=== PATIENT | female | born 1930 | race Caucasian/White ===

== ENCOUNTER 2017-03-31 03:18 | Emergency (ER) | payer MEDICARE, BC ==
[~2017-03-31] VITALS: Ht 154.9 cm; Wt 61.5 kg
[~2017-03-31 03:18] MED LIST: AMOX1TAB10 PO; BENA40TA41 PO; GLIP5TAB13 PO; HYDR25TA6 PO; IBUP-1542 PO; METO25TA7 PO; MTF1000T PO; PRAV20TA63 PO
[2017-03-31 03:23] VITALS: Ht 154.9 cm; Wt 61.5 kg
--- NOTE | 2017-03-31 04:13 | RADRPT ---
PROCEDURE: Chest. CLINICAL INDICATION: Chest pain. TECHNIQUE: Single frontal view of the chest was obtained. COMPARISON: None. FINDINGS: The cardiac silhouette is enlarged. The aortic arch is calcified. There is no focal consolidation, vascular congestion or pleural effusion. There is no pneumothorax. IMPRESSION: Cardiomegaly and aortic atherosclerosis. .Tay Shields MD, MD Date Time Electronically viewed and signed by .Tay Shields MD, MD on 03/31/2017 04:13 .T/
[2017-03-31 04:23] LABS: BASOPHIL # 0.1 10^3/ul (0.0-0.1); BASOPHILS % 0.5 % (0.0-2.0); EOSINOPHILS # 0.1 10^3/ul (0.0-0.5); EOSINOPHILS % 1.3 % (0.0-7.0); HEMATOCRIT 38.1 % (37.0-47.0); HEMOGLOBIN 12.7 g/dl (12.0-16.0); LYMPHOCYTES # 3.1 10^3/ul (0.8-2.9); LYMPHOCYTES % 32.9 % (15.0-51.0); MEAN CORPUSCULAR HEMOGLOBIN 28.7 pg (29.0-33.0); MEAN CORPUSCULAR HGB CONC 33.3 g/dl (32.0-37.0); MEAN PLATELET VOLUME 10.5 fl (7.4-10.4); MONOCYTE # 0.8 10^3/ul (0.3-0.9); MONOCYTES % 8.9 % (0.0-11.0); NEUTROPHIL # 5.2 10^3/ul (1.6-7.5); PLATELET COUNT 262 10^3/UL (140-415); RED BLOOD COUNT 4.43 10^6/ul (4.20-5.40); RED CELL DISTRIBUTION WIDTH 13.3 % (11.5-14.5); WHITE BLOOD COUNT 9.3 10^3/ul (4.8-10.8)
[2017-03-31] MEDS ORDERED: MECLIZINE 12.5 MG TAB PO ONE (04:30)
[2017-03-31 04:32] LABS: INR 0.97; PROTIME 12.9 Sec (12.2-14.2)
[2017-03-31 04:33] LABS: PARTIAL THROMBOPLASTIN TIME 36.7 Sec (25.0-35.0)
[2017-03-31 04:34] LABS: ALANINE AMINOTRANSFERASE 28 IU/L (13-69); ALBUMIN 4.7 g/dl (3.3-4.9); ALBUMIN/GLOBULIN RATIO 1.62; ALKALINE PHOSPHATASE 97 IU/L (42-121); ANION GAP 21 (8-16); ASPARTATE AMINO TRANSFERASE 25 IU/L (15-46); BILIRUBIN,INDIRECT 0.5 mg/dl (0-1.1); BILIRUBIN,TOTAL 0.5 mg/dl (0.2-1.3); BLOOD UREA NITROGEN 14 mg/dl (7-20); CALCIUM 9.9 mg/dl (8.4-10.2); CARBON DIOXIDE 25 mmol/L (21-31); CHLORIDE 96 mmol/L (97-110); CREATININE 0.69 mg/dl (0.44-1.00); GLUCOSE 126 mg/dl (70-220); POTASSIUM 3.9 mmol/L (3.5-5.1); SODIUM 138 mmol/L (135-144); TOTAL PROTEIN 7.6 g/dl (6.1-8.1)
[2017-03-31 04:47] LABS: TROPONIN-I < 0.012 ng/ml (0.00-0.12)
[2017-03-31] MEDS ORDERED: ATOR20TA38 PO (04:49)
[2017-03-31] MEDS ORDERED: MEMA28CA PO (04:49)
--- NOTE | 2017-03-31 05:06 | RADRPT ---
PROCEDURE: CT brain without contrast. CLINICAL INDICATION: Dizziness. TECHNIQUE: CT scan of the brain was performed on a multi-detector high-resolution CT scanner. Co ntiguous axial images were obtained from the skull base to the vertex without intravenous contrast. Coronal and sagittal reformatted images were also obtained. Images were reviewed on the PACS works tation. One or more of the following dose reduction techniques were used: - Automated exposure control. - Adjustment of the mA and/or kV according to patient size. - Use of iterative reconstruction technique. Exam CTD/vol = 45.01 mGy. Total exam DLP = 720.23 mGy-cm. COMPARISON: 02/10/2016. FINDINGS: The ventricles and cortical sulci are prominent consistent with mild age related volume loss. There are patchy areas of low attenuation within the periventricular white matter consistent with mild ch ronic ischemic changes secondary to small vessel disease. there is a chronic lacunar infarct within the right basal ganglia. There is no mass effect or midline shift. There is no intracranial hemor rhage or abnormal extra-axial collection. There are atherosclerotic calcifications within bilateral distal internal carotid arteries. There is a small calcification within the high paramedian left fro ntal lobe. The calvarium is intact. There is no evidence of fracture. Visualized paranasal sinuses and mastoi d air cells are clear. IMPRESSION: No acute intracranial abnormality identified. Mild age related volume loss and chronic ischemic white matter disease. Chronic lacunar infarct within the right basal ganglia. Cerebral atherosclerosis. 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 .Tay Shields MD, Date Time Electronically viewed and signed by .Tay Shields MD, on 03/31/2017 05:05 .T/
[2017-03-31] MEDS ORDERED: MECL12.574 PO (05:19)
--- NOTE | 2017-03-31 05:19 | ERD ---
ER Documentation Chief Complaint Date/Time DATE: 03/31/17 TIME: 05:17 Chief Complaint dizziness x 4 days HPI This is an 86-year-old female who presents to the emergency room for evaluation of dizziness. The patient describes her dizziness as a lightheaded sensation worse with rapid change in position. She denies any chest pain or shortness of breath or palpitations or vomiting associated with this. She came to the emergency room today for evaluation of this dizziness. ROS All systems reviewed and are negative except as per history of present illness. Medications Home Meds Reported Medications Memantine* (Namenda* XR) 28 Mg Cap.spr.24, 28 MG PO DAILY, #30 TAB 03/31/17 Atorvastatin Calcium* (Atorvastatin Calcium*) 20 Mg Tablet, 20 MG PO QHS, #30 TAB 03/31/17 Metoprolol Succinate* (Toprol XL*) 25 Mg Tab.sr.24h, 100 MG PO AFTER DINNER, # 30 TAB 02/11/16 Metformin* (Glucophage*) 1,000 Mg Tablet, 1000 MG PO BID, #60 TAB 02/11/16 Ibuprofen* (Ibuprofen*) 600 Mg Tablet, 600 MG PO DAILY 07/07/10 Benazepril Hcl* (Benazepril Hcl*) 40 Mg Tablet, 40 MG PO QHS 07/07/10 Discontinued Reported Medications Glipizide* (Glipizide*) 5 Mg Tablet, 15 MG PO BID, TAB [id number] IN THE MORNING AND 1TAB IN THE EVNENG 02/11/16 Pravastatin Sodium* (Pravastatin Sodium*) 20 Mg Tablet, 20 MG PO HS, TAB 02/11/16 Hydrochlorothiazide (Hydrochlorothiazide) 25 Mg Tablet, 25 MG PO DAILY 07/07/10 Discontinued Scripts Amox Tr/Potassium Clavulanate (Amox Tr-K Clv 875-125 Mg Tab) 1 Tab Tablet, 1 TAB PO BID for 3 Days, TAB Prov:KATERINA LUNDBERG 02/12/16 Allergies Allergies: Coded Allergies: No Known Allergy (Unverified , 03/31/17) PMhx/Soc History of Surgery: Yes Anesthesia Reaction: No Hx Neurological Disorder: No Hx Respiratory Disorders: No Hx Cardiac Disorders: Yes Hx Psychiatric Problems: No Hx Miscellaneous Medical Probl: Yes (GERD, HTN, Hypercholesterolemia, gallstones, choleliathiasis) Hx Alcohol Use: No Hx Substance Use: No Hx Tobacco Use: No Smoking Status: Never smoker Physical Exam Vitals Vital Signs Date Time Temp Pulse Resp B/P Pulse Ox O2 Delivery O2 Flow Rate FiO2 03/31/17 03:23 98.0 67 20 182/77 99 Physical Exam INITIAL VITAL SIGNS: Reviewed by me GENERAL: The patient is well developed and appropriate for usual state of health in no apparent distress HEENT: Pupils equal, round, and reactive to light. EOMI. There is no scleral icterus. NECK: C-spine is soft and supple, there is no meningismus. There is no cervical lymphadenopathy. LUNGS: Clear to auscultation bilaterally. There are no rales, wheezes or rhonchi. HEART: Regular rate and rhythm, no murmurs, clicks, rubs or gallops. ABDOMEN: Soft, non-tender, non-distended. There are bowel sounds in all four quadrants. No rebound or guarding. EXTREMITIES: There is no peripheral cyanosis or edema. No focal swelling or erythema. NEUROLOGICAL: The patient moves all four extremities with 5/5 strength. Cranial nerves II - XII are intact. Normal gait. Alert and oriented SKIN: There is no apparent rash or petechiae. HEME/LYMPHATIC: There is no evidence of excessive bruising or lymphedema. PSYCHIATRIC: The patient does not appear anxious or depressed. Result Diagram: 03/31/17 0350 03/31/17 0350 Results 24 hrs Laboratory Tests Test 03/31/17 03:50 White Blood Count 9.310^3/ul Red Blood Count 4.4310^6/ul Hemoglobin 12.7g/dl Hematocrit 38.1% Mean Corpuscular Volume 86.0fl Mean Corpuscular Hemoglobin 28.7pg Mean Corpuscular Hemoglobin Concent 33.3g/dl Red Cell Distribution Width 13.3% Platelet Count 87230^3/UL Mean Platelet Volume 10.5fl Neutrophils % 56.0% Lymphocytes % 32.9% Monocytes % 8.9% Eosinophils % 1.3% Basophils % 0.5% Nucleated Red Blood Cells % 0.0/100WBC Neutrophils # 5.210^3/ul Lymphocytes # 3.110^3/ul Monocytes # 0.810^3/ul Eosinophils # 0.110^3/ul Basophils # 0.110^3/ul Nucleated Red Blood Cells # 0.010^3/ul Prothrombin Time 12.9Sec Prothrombin Time Ratio 1.0 INR International Normalized Ratio 0.97 Activated Partial Thromboplast Time 36.7Sec Sodium Level 138mmol/L Potassium Level 3.9mmol/L Chloride Level 96mmol/L Carbon Dioxide Level 25mmol/L Anion Gap 21 Blood Urea Nitrogen 14mg/dl Creatinine 0.69mg/dl Glucose Level 126mg/dl Calcium Level 9.9mg/dl Total Bilirubin 0.5mg/dl Direct Bilirubin 0.00mg/dl Indirect Bilirubin 0.5mg/dl Aspartate Amino Transf (AST/SGOT) 25IU/L Alanine Aminotransferase (ALT/SGPT) 28IU/L Alkaline Phosphatase 97IU/L Troponin I < 0.012ng/ml Total Protein 7.6g/dl Albumin 4.7g/dl Globulin 2.90g/dl Albumin/Globulin Ratio 1.62 Current Medications Medications (Trade) Dose Ordered Sig/Adam Route PRN Reason Start Time Stop Time Status Last Admin Dose Admin Meclizine HCl (Antivert) 25 mg ONCE ONCE PO 03/31/17 04:30 03/31/17 04:31 DC Procedures/MDM EKG: Rate/Rhythm: [Normal Sinus Rhythm] QRS, ST, T-waves: [No changes consistent w/ acute ischemia] Impression: [No evidence of ischemia or arrhythmia] Chest X-ray 1V Interpreted by me: Soft Tissue: No acute abnormalities Bones: No acute abnormalities Mediastinum/Cardiac Silhouette/Lungs: [No acute abnormalities] CT brain: No acute intracranial abnormality identified. Mild age related volume loss and chronic ischemic white matter disease. Chronic lacunar infarct within the right basal ganglia. Cerebral atherosclerosis. 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 This 86-year-old female presents to the ER for evaluation of dizziness. When I evaluated her she was in no acute distress and was hemodynamically stable. The patient was ambulating in the ER without difficulty. The patient underwent cardiac workup including troponin which is negative, EKG which is nonischemic. Chest x-ray is clear. I did obtain a CT of the brain which does not show any acute intracranial abnormalities. This patient stated that her dizziness had improved with meclizine. Given her hemodynamic stability, and decreased dizziness with meclizine she will be discharged at this time with a prescription for meclizine and instructed to return to the ER if her symptoms worsen. Departure Diagnosis: Primary Impression: Dizziness Condition: Stable MECHE ROA DO Mar 31, 2017 05:19
[2017-03-31 05:48] VITALS: BP 178/71; PULSE 68; RESP 20
== END 2017-03-31 05:50 | disposition home or self-care (01) ==
LOC: E/R 03:18
DX: R42 Dizziness and giddiness (principal); I10 Essential (primary) hypertension; R07.9 Chest pain, unspecified; Z79.84 Long term (current) use of oral hypoglycemic drugs
CPT/HCPCS: 36415; 70450; 71010; 80053; 84484; 85025; 85610; 85730; 93005

== ENCOUNTER 2017-04-04 22:14 | Inpatient (IN) | payer MEDICARE, BC ==
[~2017-04-04] VITALS: Ht 147.3 cm; Wt 59.1 kg
[~2017-04-04 22:14] MED LIST changes: -AMOX1TAB10 PO; +ATOR20TA38 PO; -GLIP5TAB13 PO; -HYDR25TA6 PO; +MECL12.574 PO; +MEMA28CA PO; -PRAV20TA63 PO
[2017-04-05] VITALS (14 sets, daily range): BP systolic 92–159; BP diastolic 39–98; PULSE 56–59; RESP 19–20; Ht 147.3 cm; Wt 59.1 kg
[2017-04-05] MEDS ORDERED: PROCHLORPERAZINE 10 MG INJ IV STA (02:14)
[2017-04-05] MEDS ORDERED: SOD CHLORIDE 0.9% 1,000 ML IV STA (02:14)
[2017-04-05] MEDS ORDERED: HYD25 PO (02:19)
[2017-04-05 02:43] LABS: BASOPHILS % 0.3 % (0.0-2.0); EOSINOPHILS # 0.1 10^3/ul (0.0-0.5); EOSINOPHILS % 0.7 % (0.0-7.0); HEMATOCRIT 36.8 % (37.0-47.0); HEMOGLOBIN 12.8 g/dl (12.0-16.0); LYMPHOCYTES # 2.8 10^3/ul (0.8-2.9); LYMPHOCYTES % 28.6 % (15.0-51.0); MEAN CORPUSCULAR HEMOGLOBIN 28.6 pg (29.0-33.0); MEAN CORPUSCULAR HGB CONC 34.8 g/dl (32.0-37.0); MEAN CORPUSCULAR VOLUME 82.3 fl (82.0-101.0); MEAN PLATELET VOLUME 10.4 fl (7.4-10.4); MONOCYTES % 10.2 % (0.0-11.0); NEUTROPHIL # 5.9 10^3/ul (1.6-7.5); NEUTROPHILS % 59.9 % (39.0-77.0); PLATELET COUNT 248 10^3/UL (140-415); RED BLOOD COUNT 4.47 10^6/ul (4.20-5.40); RED CELL DISTRIBUTION WIDTH 12.8 % (11.5-14.5); WHITE BLOOD COUNT 9.9 10^3/ul (4.8-10.8)
[2017-04-05 03:59] LABS: CALCIUM 9.7 mg/dl (8.4-10.2); CREATININE 0.82 mg/dl (0.44-1.00); POTASSIUM 3.6 mmol/L (3.5-5.1)
--- NOTE | 2017-04-05 04:50 | ERA ---
ER Documentation Chief Complaint Date/Time DATE: 04/05/17 TIME: 04:38 Chief Complaint DEL TORO X3wks, Vomiting today HPI 86-year-old female with a history of hypertension and diabetes presenting with on the left side of her head with associated ear pain. She states that the symptoms come and go. She hears a noise in her ear as well but she cannot describe it. She was here recently for evaluation for this headache. She had a CT scan done which did not show any acute abnormalities. She was sent home and told to follow-up with her doctor. She will follow up with her doctor who sent her to a heavy forging machine operator where she was told she had valvular regurgitation. She has also been referred to a neurologist with whom she has an appointment on May 02. An MRI has been ordered but not scheduled yet. Currently the pain is at a 4 out of 10. She denies any associated dizziness, fever, chills, vomiting. She does have decreased appetite and associated nausea. She denies any chest pain, shortness of breath, abdominal pain. Per her daughter, she has not been eating well at all. ROS All systems reviewed and are negative except as per history of present illness. Medications Home Meds Active Scripts Meclizine Hcl* (Antivert*) 12.5 Mg Tab, 12.5 MG PO Q6H Y for DIZZINESS, #20 TAB Prov:JOHNNY ROAHEMANT CANDELARIA 03/31/17 Reported Medications Hydrochlorothiazide* (Hydrochlorothiazide*) 25 Mg Tab, 25 MG PO DAILY, #30 TAB 04/05/17 Memantine* (Namenda* XR) 28 Mg Cap.spr.24, 28 MG PO DAILY, #30 TAB 03/31/17 Atorvastatin Calcium* (Atorvastatin Calcium*) 20 Mg Tablet, 20 MG PO QHS, #30 TAB 03/31/17 Metoprolol Succinate* (Toprol XL*) 25 Mg Tab.sr.24h, 100 MG PO AFTER DINNER, # 30 TAB 02/11/16 Metformin* (Glucophage*) 1,000 Mg Tablet, 1000 MG PO BID, #60 TAB 02/11/16 Ibuprofen* (Ibuprofen*) 600 Mg Tablet, 600 MG PO DAILY 07/07/10 Benazepril Hcl* (Benazepril Hcl*) 40 Mg Tablet, 40 MG PO QHS 07/07/10 Discontinued Reported Medications Glipizide* (Glipizide*) 5 Mg Tablet, 15 MG PO BID, TAB [id number] IN THE MORNING AND 1TAB IN THE EVNENG 02/11/16 Pravastatin Sodium* (Pravastatin Sodium*) 20 Mg Tablet, 20 MG PO HS, TAB 02/11/16 Hydrochlorothiazide (Hydrochlorothiazide) 25 Mg Tablet, 25 MG PO DAILY 07/07/10 Discontinued Scripts Amox Tr/Potassium Clavulanate (Amox Tr-K Clv 875-125 Mg Tab) 1 Tab Tablet, 1 TAB PO BID for 3 Days, TAB Prov:KATERINA LUNDBERG 02/12/16 Allergies Allergies: Coded Allergies: No Known Allergy (Unverified , 03/31/17) PMhx/Soc History of Surgery: Yes Anesthesia Reaction: No Hx Neurological Disorder: No Hx Respiratory Disorders: No Hx Cardiac Disorders: Yes Hx Psychiatric Problems: Yes (Dementia) Hx Miscellaneous Medical Probl: Yes (GERD, HTN, Hypercholesterolemia, gallstones, choleliathiasis) Hx Alcohol Use: No Hx Substance Use: No Hx Tobacco Use: No Smoking Status: Never smoker FmHx Family History: No diabetes Physical Exam Vitals Vital Signs Date Time Temp Pulse Resp B/P Pulse Ox O2 Delivery O2 Flow Rate FiO2 04/05/17 02:33 54 20 169/74 98 Room Air 04/04/17 22:31 97.7 62 24 187/74 98 Physical Exam Const: Appears stated age, no apparent distress Head: Atraumatic Eyes: Normal Conjunctiva, PERRLA, EOMI, no nystagmus ENT: Normal External Ears, Nose and Mouth. Unable to completely visualize TMs bilaterally secondary to cerumen. This superior portion of the left TM visualized and appears normal Neck: Full range of motion..~ No meningismus. Resp: Clear to auscultation bilaterally Cardio: Regular rate and rhythm, no murmurs. 2+ distal pulses Abd: Soft, non tender, non distended. Normal bowel sounds Skin: No petechiae or rashes Back: No midline or flank tenderness Ext: No cyanosis, or edema Neur: Awake and alert and oriented 3, cranial nerves intact, strength and sensations intact in all 4 extremities Psych: Normal Mood and Affect Result Diagram: 04/05/17 0230 04/05/17 0230 Results 24 hrs Laboratory Tests Test 04/05/17 02:30 White Blood Count 9.910^3/ul Red Blood Count 4.4710^6/ul Hemoglobin 12.8g/dl Hematocrit 36.8% Mean Corpuscular Volume 82.3fl Mean Corpuscular Hemoglobin 28.6pg Mean Corpuscular Hemoglobin Concent 34.8g/dl Red Cell Distribution Width 12.8% Platelet Count 83901^3/UL Mean Platelet Volume 10.4fl Neutrophils % 59.9% Lymphocytes % 28.6% Monocytes % 10.2% Eosinophils % 0.7% Basophils % 0.3% Nucleated Red Blood Cells % 0.0/100WBC Neutrophils # 5.910^3/ul Lymphocytes # 2.810^3/ul Monocytes # 1.010^3/ul Eosinophils # 0.110^3/ul Basophils # 0.010^3/ul Nucleated Red Blood Cells # 0.010^3/ul Sodium Level 123mmol/L Potassium Level 3.6mmol/L Chloride Level 78mmol/L Carbon Dioxide Level 23mmol/L Anion Gap 26 Blood Urea Nitrogen 27mg/dl Creatinine 0.82mg/dl Glucose Level 90mg/dl Calcium Level 9.7mg/dl Current Medications Medications (Trade) Dose Ordered Sig/Adam Route PRN Reason Start Time Stop Time Status Last Admin Dose Admin Sodium Chloride (NS) 1,000 ml @ 1,000 mls/hr Q1H STAT IV 04/05/17 02:14 04/05/17 03:13 DC 04/05/17 02:53 Prochlorperazine (Compazine Inj) 10 mg ONCE STAT IV 04/05/17 02:14 04/05/17 02:16 DC 04/05/17 03:07 Ondansetron HCl (Zofran Inj) 4 mg ER BRIDGE PRN IV NAUSEA AND/OR VOMITING 04/05/17 05:30 04/06/17 05:29 Acetaminophen (Tylenol Tab) 650 mg ER BRIDGE PRN PO MILD PAIN/FEVER 04/05/17 05:30 04/06/17 05:29 Procedures/MDM EMERGENT LABS AND DIAGNOSTIC STUDIES: Lab Results above were reviewed and interpreted by me. CBC: no anemia or evidence of infection BMP: Hyponatremia, hypochloremia, elevated BUN UA: Pending 12-lead EKG was interpreted by Mario Hernandez MD: Sinus bradycardia with ventricular rate of 59 beats per minute Normal axis Normal intervals No acute ST or T wave changes suggestive of acute ischemia or STEMI. Imaging Chest X-ray 1V Interpreted by me: Soft Tissue: No acute abnormalities Bones: No acute abnormalities Mediastinum/Cardiac Silhouette/Lungs: No acute abnormalities Initial Nursing notes reviewed. Previous Medical Records requested via the Electronic Health Record. EMERGENCY DEPARTMENT COURSE / MEDICAL DECISION MAKING: Patient is presenting with persistent left-sided headache with nausea and decreased p.o. intake. Vitals were notable for hypertension when she first arrived, which improved without medications. Her neurologic exam is normal. She had a CT scan done recently that did not show an acute abnormality. I do not think a repeat CT scan will be helpful at this time. The patient likely needs an MRI, however this does not need to happen emergently in the ED. I have a low suspicion for acute intracranial hemorrhage, meningitis, encephalitis. Reglan IV was given for the headache and IV fluids were given with improvement. There is no evidence of otitis or mastoiditis. Labs showed evidence of significant hyponatremia, which may be secondary to decreased p.o. intake versus dehydration versus some other etiology. However the patient is not stable for discharge. She will be admitted for further workup and management of her hyponatremia. I will defer any further imaging to the inpatient team. The patient is capitated to [facility]. However the patient and her daughter refused transfer. They are aware that the insurance may not pay there hospital bill for this admission, but still choose to stay. Accepting Care Team: Current data and ongoing care discussed. Time: Time of admission Primary Provider: Mamta. Consulting: none Outstanding Data: UA Departure Diagnosis: Primary Impression: Headache Qualified Code: R51 - Intractable headache, unspecified chronicity pattern, unspecified headache type Additional Impression: Hyponatremia Condition: Serious MIKAL HERNANDEZ MD Apr 05, 2017 04:50
[2017-04-05] MEDS ORDERED: ACETAMINOPHEN 325 MG TAB PO PRN (05:30)
[2017-04-05] MEDS ORDERED: ONDANSETRON 4 MG INJ IV PRN ×2 (05:30→07:00)
[2017-04-05] MEDS ORDERED: morphine 4 MG/ML VIAL IV PRN (07:00)
[2017-04-05] MEDS ORDERED: DEXTROSE 5%-0.9% NACL 1,000 ML IV SCH (07:30)
--- NOTE | 2017-04-05 07:45 | HP ---
Date/Time of Note Date/Time of Note DATE: 04/05/17 TIME: 07:33 Assessment/Plan Assessment/Plan Assessment/Plan 1. Hyponatremia: likely hypovolumic hyponatremia given reported decreased po intake - will be placed on NS IVF. 2. Headache and dizziness: likely 2/2 above - head CT here on 03/31 neg for acute findings - pt has an appt to see a Neurologist on May 02. will consider in-house consultation as needed - Will obtain MRI of brain especially given ear pain as well 3. Hypertensive Urgency: BP better controlled - adjust BP meds as needed 4. Diabetes: insulin while in-house HPI/ROS Admit Date/Time Admit Date/Time Apr 05, 2017 at 05:22 Hx of Present Illness This is an 86-year-old female with a history of hypertension and diabetes who presented to ER c/o headache, dizziness and left ear pain. She was here at [facility] ER 4 days ago with chief complain of dizziness. At that time, CT head was neg for acute findings. Pt has an appt to see a Neurologist at end of this month. Reportedly, pt also with decreased po intake In ER, initial BP was 187/74. Labs showed of 123. Patient was admitted here in February of last year for Hyponatremia (as low as 120). Currently, no chest pain, SOB, fever/chills. . PMH/Family/Social Past Surgical History Past Surgical Hx: no surgical history Social History Smoking Status: Never smoker Exam/Review of Systems Vital Signs Vitals Vital Signs Date Time Temp Pulse Resp B/P Pulse Ox O2 Delivery O2 Flow Rate FiO2 04/05/17 07:12 98.3 59 19 152/68 98 04/05/17 06:06 Room Air Exam Constitutional: other (No distress) Head: atraumatic, normocephalic Eyes: EOMI, PERRL Respiratory: clear to auscultation, normal air movement Cardiovascular: nl pulses, regular rate and rhythm Gastrointestinal: non-tender, soft Extremities: normal pulses Labs Result Diagram: 04/05/17 0230 04/05/17 0230 Medications Medications Current Medications Ondansetron HCl (Zofran Inj) 4 mg Q6H PRN IV NAUSEA AND/OR VOMITING; Start 04/05 at 07:00 Morphine Sulfate 2 mg 2 mg Q4H PRN IV Pain; Start 04/05/17 at 07:00 Dextrose/Sodium Chloride (D5-NS) 1,000 ml @ 100 mls/hr Q10H IV ; Start 04/05/17 at 07:30 ANA LAURA ROY MD Apr 05, 2017 07:45
[2017-04-05] MEDS: INSULIN ASPART [NOVOLOG] 3 ML PEN SC SCH ×4 (07:55→20:32)
[2017-04-05] MEDS ORDERED: GLUCOSE GEL 15 GRAM TUBE BUCCAL PRN (08:00)
[2017-04-05] MEDS ORDERED: GLUCAGON 1 MG INJ IM PRN (08:00)
[2017-04-05] MEDS ORDERED: GLUCOSE GEL 15 GRAM TUBE PO PRN ×2 (08:00)
[2017-04-05] MEDS ORDERED: MECLIZINE 12.5 MG TAB PO PRN (08:00)
[2017-04-05] MEDS ORDERED: INSULIN GLARGINE [LANtus] 3 ML PEN SC SCH (08:00)
[2017-04-05] MEDS ORDERED: DEXTROSE 50% 50 ML SYRINGE IV PRN ×2 (08:00)
--- NOTE | 2017-04-05 08:02 | RADRPT ---
PROCEDURE: Chest radiograph. CLINICAL INDICATION: Hyponatremia. TECHNIQUE: Single portable frontal view. COMPARISON: Radiograph from 03/31/2017. FINDINGS: The lungs are clear. No pleural effusion or focal parenchymal opacity. The heart is mildly enlarged. Mild atherosclerotic plaque is present. No suspicious bone lesion. Hydroxyapatite deposition within the right rotator cuff interval. IMPRESSION: No acute cardiopulmonary abnormality. RPTAT: PP Arely Chowdhury Physician Date Time Electronically viewed and signed by Arely Chowdhury Physician on 04/05/2017 08:02 LG/
[2017-04-05 08:57] LABS: URIC ACID 7.1 mg/dl (3.1-7.9)
[2017-04-05] MEDS ORDERED: IBUPROFEN 600 MG TAB PO SCH (09:00)
[2017-04-05] MEDS: MEMANTINE 10 MG TAB PO SCH ×2 (09:00→20:26)
[2017-04-05] MEDS: METOPROLOL (XL) 100 MG TAB PO SCH (09:00)
[2017-04-05] MEDS ORDERED: HYDROCHLOROTHIAZIDE 25 MG TAB PO SCH (09:00)
[2017-04-05 09:29] LABS: THYROID STIMULATING HORMONE 2.15 MIU/L (0.465-4.680)
[2017-04-05 11:15] LABS: CALCIUM 8.9 mg/dl (8.4-10.2); CREATININE 0.73 mg/dl (0.44-1.00); POTASSIUM 3.3 mmol/L (3.5-5.1)
[2017-04-05] MEDS ORDERED: NITROGLYCERIN (SL) 0.4 MG TAB SL PRN (11:30)
--- NOTE | 2017-04-05 11:53 | CONS ---
DATE OF ADMISSION: 04/05/2017 DATE OF CONSULTATION: 04/05/2017 Nephrology Consultation REASON FOR CONSULTATION: Hyponatremia. REQUESTING PHYSICIAN: Roberth Oleary MD HISTORY OF PRESENT ILLNESS: This is an 86-year-old female with a past medical history of hypertension and diabetes, who presented to the emergency room with complaints of nausea, vomiting, headaches, and ear pain. The patient was recently admitted to [facility] for headache. CT scan at that time showed no acute abnormalities. The patient was told to follow up with her primary doctor. The patient was also scheduled to see an outpatient neurologist; however, her symptoms progressively worsened; as a result she came to the emergency room. Upon arrival, the patient was noted to be hyponatremic with sodium 123. The patient was given antiemetics, IV fluids, and admitted to telemetry. In terms of the patient's renal history, the patient has had previous episodes of hyponatremia. The patient does take hydrochlorothiazide in an outpatient setting and ibuprofen as well as an ALYSA inhibitor. There have been no reports of hemoptysis, hematemesis, or hematochezia. PAST MEDICAL HISTORY: History of dementia, GERD, hypertension, dyslipidemia, gallstones. PAST SURGICAL HISTORY: None. ALLERGIES: NO KNOWN DRUG ALLERGIES. FAMILY HISTORY: Noncontributory. MEDICATION: Reviewed. REVIEW OF SYSTEMS: A 14-point review of systems was conducted. Pertinent positives are in the HPI, otherwise negative. PHYSICAL EXAMINATION: VITAL SIGNS: Blood pressure is 152/68, pulse 59, temperature 98.3. HEENT: Head is normocephalic. NECK: Supple. HEART: Regular rate. LUNGS: Diminished breath sounds at the bases. ABDOMEN: Soft, nontender to palpation. No rebound or guarding. EXTREMITIES: Negative for clubbing, cyanosis. No edema. DERMATOLOGIC: No rashes. MUSCULOSKELETAL: No joint effusion. NEUROLOGIC: Limited exam due to lack of patient cooperation. LABORATORY AND DIAGNOSTIC DATA: Sodium 123, potassium 3.6, chloride 78. BUN 27, creatinine 0.82. White count 9.9, hemoglobin 12.8, hematocrit of 36.8; platelet count is . ASSESSMENT AND PLAN: This is a 86-year-old female who presents with: 1. Hyponatremia, possibly acute versus chronic. Underlying etiology is likely secondary to hydrochlorothiazide, volume depletion. The possibility of underlying syndrome of inappropriate antidiuretic hormone secretion is a consideration. Plan at this point is to check a urine sodium, urine osmolarity, serum osmolarity. We will check uric acid level, TSH level. The patient is status post IV fluids. At this point would hold IV fluids. We will monitor serum sodium levels. Would hold hydrochlorothiazide. Would expect sodium levels to slowly improve once diuretic therapy has been held and patient is able to resume oral intake. 2. Nausea, vomiting. Etiology may be secondary to hyponatremia. The patient is status post antiemetics. Will continue to monitor. 3. History of hypertension. Will continue to monitor. Continue current blood pressure regimen. 4. Diabetes. Continue Accu-Cheks and insulin sliding scale. 5. History of dementia. Thank you, Dr. Oleary, for this interesting consult. It will be a pleasure to follow patient with you throughout the hospital course. Dictated By: Morgan Eduardo DO /[email or web address]/anurag /Document#: [id number]
--- NOTE | 2017-04-05 11:59 | QN ---
Documentation Comment Reevaluated patient. Spoke to patient's daughter at bedside. 2D echocardiogram from outside hospital revealed severe mitral regurgitation. This could also explain the patient's symptoms including dizziness. Currently patient denies chest pain, palpitation, nausea, vomiting or other constitutional symptoms. Will also obtain serial cardiac markers, serial EKGs. Patient will be started on aspirin, nitroglycerin sublingual PRN. at this time MRI is pending. We are going to proceed with a cardiology consultation and patient would possibly need CT surgery evaluation in-house. We will defer this to cardiology. Case discussed with Dr. Gilliam. CECILIO GARRIDO NP Apr 05, 2017 11:59
[2017-04-05 13:18] LABS: CK-MB 0.64 ng/ml (0.0-2.4)
[2017-04-05 13:22] LABS: CREATINE KINASE 30 IU/L (23-200)
[2017-04-05 13:24] LABS: TROPONIN-I < 0.012 ng/ml (0.00-0.12)
[2017-04-05 14:21] LABS: ADD UMIC YES; UR ASCORBIC ACID NEGATIVE (NEGATIVE); UR BILIRUBIN (Dip) NEGATIVE (NEGATIVE); UR BLOOD (Dip) 2+ mg/dL (NEGATIVE); UR CLARITY CLEAR (CLEAR); UR COLOR STRAW (YELLOW); UR GLUCOSE (Dip) NEGATIVE (NEGATIVE); UR KETONES (Dip) NEGATIVE (NEGATIVE); UR LEUKOCYTE ESTERASE (Dip) NEGATIVE Leu/ul (NEGATIVE); UR NITRITE (Dip) NEGATIVE (NEGATIVE); UR SPECIFIC GRAVITY (Dip) 1.005 (1.003-1.030); UR TOTAL PROTEIN (Dip) NEGATIVE (NEGATIVE); UR UROBILINOGEN (Dip) NEGATIVE (NEGATIVE)
[2017-04-05 14:22] LABS: UR RBC 2 /HPF (0-5)
--- NOTE | 2017-04-05 14:29 | RADRPT ---
Echocardiogram Report ADDENDUM Patient Name: KOFFI SHEIKH Gender: Female Date: 1930 Study Date: 05-Apr-2017 Bond Trader: Darvin Martinez RDCS Location: [facility] Ref. Physician: CECILIO GARRIDO Quality: Good Procedures: Transthoracic echocardiogram with complete 2D, M-Mode, and doppler examination. Indications: Mitral Valve Regurgitation. 2D/M Mode Doppler Measurement Value Normal Ranges Measurement Value Normal Ranges LVIDd 2D 4.0 3.5 - 5.6 cm AV Peak Mateo 1.2 m/sec LVIDs 2D 2.6 2.1 - 4.1 cm AV Peak PG 6.2 mmHg LVPWd 2D 1.1 0.6 - 1.1 cm AI Peak PG 57.6 mmHg IVSd 2D 1.1 0.6 - 1.1 cm AI Peak Mateo 3.8 m/sec AoR Diam 2D 3.1 2.0 - 3.7 cm AI PHT 791.7 msec EDV 2D 71.6 cm3 LVOT Peak Mateo 1.0 m/sec ESV 2D 16.8 cm3 LVOT Peak PG 4.4 mmHg LA Dimen 2D 4.1 2.3 - 4.0 cm MV E Peak Mateo 1.0 m/sec MV A Peak Mateo 1.3 m/sec MV E/A 0.8 MV Decel Time 325 msec MV Decel Solano 3 MV E/A 0.8 TR Peak Mateo 2.6 m/sec TR Peak PG 26.1 mmHg RVSP 29.0 mmHg Findings Left Ventricle: Normal left ventricular systolic function. Normal left ventricular cavity size. Mild concentric left ventricular hypertrophy. Ejection fraction is visually estimated at 60 %. Tissue Doppler/Mitral Doppler indices are consistent with impaired relaxation (Stage I diastolic dysfunction). Right Ventricle: Normal right ventricular size. Normal right ventricular systolic function. Left Atrium: There is mild enlargement of left atrium. Right Atrium: The right atrium is normal in size. Mitral Valve: Mitral valve leaflets appear mildly thickened. Mild mitral annular calcification. Mild to moderate mitral valve regurgitation. Aortic Valve: No hemodynamically significant aortic stenosis by doppler. Aortic cusps appear mildly calcified. Mild aortic valve regurgitation. Tricuspid Valve: Normal appearance of the tricuspid valve. Estimated peak PA systolic pressure 29 mmHg. There is mild tricuspid regurgitation. Pulmonic Valve: Pulmonic valve not well visualized. Pericardium: Small pericardial effusion. Aorta: Normal aortic root. IVC: Normal size and normal respiratory collapse consistent with normal right atrial pressure. Conclusions Normal left ventricular systolic function. Normal left ventricular cavity size. Mild concentric left ventricular hypertrophy. Ejection fraction is visually estimated at 60 %. Tissue Doppler/Mitral Doppler indices are consistent with impaired relaxation (Stage I diastolic dysfunction). There is mild enlargement of left atrium. Mitral valve leaflets appear mildly thickened. Mild mitral annular calcification. Moderate mitral valve regurgitation. No hemodynamically significant aortic stenosis by doppler. Aortic cusps appear mildly calcified. Mild aortic valve regurgitation. Normal appearance of the tricuspid valve. Estimated peak PA systolic pressure 29 mmHg. There is mild tricuspid regurgitation. Electronically Signed By: Carlitos Reyes 06-Apr-2017 11:50:22 -0700 [ADDENDUM] Patient Name: KOFFI SHEIKH Study Date: 05-Apr-2017 [id number]
[2017-04-05] MEDS: metFORMIN 500 MG TAB PO SCH (17:48)
[2017-04-05 19:03] LABS: CREATINE KINASE 27 IU/L (23-200)
[2017-04-05 19:11] LABS: CK-MB 0.56 ng/ml (0.0-2.4)
[2017-04-05 19:18] LABS: TROPONIN-I < 0.012 ng/ml (0.00-0.12)
[2017-04-05] MEDS: BENAZEPRIL 40 MG TAB PO SCH (20:26)
[2017-04-05] MEDS: ATORVASTATIN 20 MG TAB PO SCH (20:26)
[2017-04-06] VITALS (15 sets, daily range): BP systolic 126–154; BP diastolic 55–69; PULSE 59–69; RESP 18–20
[2017-04-06 01:55] LABS: CREATINE KINASE 21 IU/L (23-200)
[2017-04-06] MEDS: ACCU-CHEK XX SCH ×2 (02:00)
[2017-04-06 02:08] LABS: CK-MB 0.45 ng/ml (0.0-2.4); TROPONIN-I < 0.012 ng/ml (0.00-0.12)
[2017-04-06] MEDS: INSULIN ASPART [NOVOLOG] 3 ML PEN SC SCH ×4 (07:55→20:21)
[2017-04-06] MEDS: INSULIN GLARGINE [LANtus] 3 ML PEN SC SCH (08:13)
[2017-04-06] MEDS: ASPIRIN 81 MG TAB PO SCH (08:52)
[2017-04-06] MEDS: metFORMIN 500 MG TAB PO SCH ×2 (08:52→17:48)
[2017-04-06] MEDS: METOPROLOL (XL) 100 MG TAB PO SCH (08:53)
[2017-04-06] MEDS: MEMANTINE 10 MG TAB PO SCH ×2 (08:53→20:22)
[2017-04-06] MEDS: BENAZEPRIL 20 MG TAB PO SCH (08:53)
[2017-04-06 09:35] LABS: CALCIUM 9.6 mg/dl (8.4-10.2); CREATININE 0.81 mg/dl (0.44-1.00); POTASSIUM 3.8 mmol/L (3.5-5.1)
--- NOTE | 2017-04-06 10:15 | PN ---
DATE: 04/06/2017 SUBJECTIVE DATA: The patient is stable. No events overnight. No fevers, chills, nausea, vomiting. OBJECTIVE DATA: VITAL SIGNS: Blood pressure is 134/64, respirations 19, pulse 69, temperature 98.4. HEENT: Head is normocephalic. NECK: Supple. HEART: Regular rate. LUNGS: Show diminished breath sounds at the base. ABDOMEN: Soft, nontender to palpation. No rebound or guarding. EXTREMITIES: Negative for clubbing, cyanosis, no edema. DERMATOLOGIC: Clean. No rashes. MUSCULOSKELETAL: No joint effusion. NEUROLOGIC: Unchanged exam. MEDICATIONS: Reviewed. LABORATORY AND DIAGNOSTIC DATA: Currently pending. ASSESSMENT AND PLAN: 1. Hyponatremia. Etiology secondary to hydrochlorothiazide effect, volume depletion. The patient's sodium level has improved with discontinuing hydrochlorothiazide and gentle hydration. Sodium levels have been rising appropriately. At this point, we will continue current treatment plan, continue supportive care. We will follow up repeat sodium level this morning. Would recommend to discontinue hydrochlorothiazide. 2. Nausea, vomiting, likely from hyponatremia. The patient is improved. Continue to monitor. 3. Mild hypertension. Continue current treatment plan. 4. Diabetes. Continue Accu-Cheks and insulin sliding scale. 5. Severe mitral regurgitation. The patient is pending cardiac evaluation. 6. Hypokalemia. We will replete potassium chloride. Dictated By: Morgan Eduardo DO /elyse/amaris /Document#: [id number]
--- NOTE | 2017-04-06 10:41 | PN ---
Date/Time of Note Date/Time of Note DATE: 04/06/17 TIME: 10:32 Assessment/Plan VTE Prophylaxis VTE Prophylaxis Intervention: ambulation, SCD's Lines/Catheters IV Catheter Type (from Nrs): Peripheral IV Urinary Cath still in place: No Assessment/Plan Chief Complaint/Hosp Course 1. Headache and dizziness, most likely secondary to electrolyte imbalances vs vestibular dysfunction vs underlying valvular pathology. -F/u pending MRI Brain - pt has an appt to see a Neurologist on May 02. will consider in-house consultation as needed 2. Mitral regurgitation.Moderate on repeat echo. -Cards on board and will follow recs. 3. Hyponatremia,etiology likely dehydration. Improved with IV hydration -Hold Thiazide diuretics and f/u nephrology recs. 4.Hypertension. Stable now. - Continue current treatment plan. 5. DMII. BS well controlled -Continue Accu-Cheks and insulin sliding scale. -A1C PLAN:F/u with MRI and consider inpatient neuro eval if indicated. F/u with cards recs on further management on MR. Monitor lytes levels closely. No indication on stress ulcer prophylaxis DVT proph: Heparin. Case discussed with Problems: Subjective 24 Hr Interval Summary Free Text/Dictation Overall feels improvement in symptoms. has been walking in unit without any further dizziness or gait disturbances. Exam/Review of Systems Vital Signs Vitals Vital Signs Date Time Temp Pulse Resp B/P Pulse Ox O2 Delivery O2 Flow Rate FiO2 04/06/17 08:13 61 04/06/17 07:40 98.4 19 134/64 99 04/05/17 06:06 Room Air Intake and Output 04/05/17 04/05/17 04/06/17 15:00 23:00 07:00 Intake Total 500 ml Balance 500 ml Exam General: Elderly female not in any acute distress . HEENT: Normocephalic, Atraumatic, No laceration or hematoma; Eyes: PEERL, Conjunctiva clear, Anicteric sclera Neck: Supple without any lymphadenopathy, nontender, no JVD, no carotid bruits, trachea midline, no thyromegaly Cardiac: regular rhythm and rate, systolic grade III/ murmur left ICS, midclavicular line Pulmonary: Normal respiratory effort. Chest clear to auscultation bilaterally, no adventitious breath sounds GI: Abdomen normal to inspection. Soft, non tender, non- distended, no masses, no rebound tenderness or guarding. Bowel sounds active on all four quadrants Genitourinary: Deferred Extremities: No cyanosis, clubbing, or edema. Pulses [2+] bilaterally. Full ROM on all four extremities. No focal weakness appreciated. Neurologic: Alert to person, place, time, and situation. Affect appropriate, intact sensation. Skin: Clean,dry, and intact. No ecchymosis, no rashes, or lesions Results Result Diagram: 04/05/17 0230 04/06/17 0903 Results 24 hrs Laboratory Tests Test 04/05/17 10:41 04/05/17 12:13 04/05/17 12:24 04/05/17 12:32 Sodium Level 129 L Potassium Level 3.3 L Chloride Level 87 L Carbon Dioxide Level 27 Anion Gap 18 #H Blood Urea Nitrogen 23 H Creatinine 0.73 Glucose Level 106 Calcium Level 8.9 B-Type Natriuretic Peptide 601 H Bedside Glucose 111 Urine Osmolality 201 L Creatine Kinase 30 Creatine Kinase Index 2.1 Creatinine Kinase MB (Mass) 0.64 Troponin I < 0.012 Test 04/05/17 16:10 04/05/17 17:48 04/05/17 18:10 04/05/17 20:30 Magnesium Level 1.6 L B-Type Natriuretic Peptide 543 H Bedside Glucose 125 104 Creatine Kinase 27 Creatine Kinase Index 2.1 Creatinine Kinase MB (Mass) 0.56 Troponin I < 0.012 Test 04/06/17 00:44 04/06/17 08:02 04/06/17 09:03 Creatine Kinase 21 L Creatine Kinase Index 2.1 Creatinine Kinase MB (Mass) 0.45 Troponin I < 0.012 Bedside Glucose 93 Sodium Level 133 L Potassium Level 3.8 Chloride Level 88 L Carbon Dioxide Level 27 Anion Gap 22 H Blood Urea Nitrogen 21 H Creatinine 0.81 Glucose Level 84 Calcium Level 9.6 Medications Medications Current Medications Ondansetron HCl (Zofran Inj) 4 mg Q6H PRN IV NAUSEA AND/OR VOMITING; Start 04/05 at 07:00 Morphine Sulfate (morphine) 2 mg Q4H PRN IV Pain; Start 04/05/17 at 07:00 Atorvastatin Calcium (Lipitor) 20 mg QHS PO Last administered on 04/05/17t 20:26 ; Admin Dose 20 MG; Start 04/05/17 at 21:00 Benazepril HCl (Lotensin) 40 mg QHS PO Last administered on 04/05/17 20:26; Admin Dose 40 MG; Start 04/05/17 at 21:00 Meclizine HCl (Antivert) 12.5 mg Q6H PRN PO DIZZINESS; Start 04/05/17 at 08:00 Metoprolol Succinate (Toprol Xl) 100 mg DAILY PO Last administered on 04/06/17 08:53; Admin Dose 100 MG; Start 04/05/17 at 09:00 Memantine (Namenda) 10 mg BID PO Last administered on 04/06/17 08:53; Admin Dose 10 MG; Start 04/05/17 at 09:00 Hydralazine HCl (Apresoline) 10 mg Q4H PRN IV sbp > 160; Start 04/05/17 at 08:00 Diagnostic Test (Pha) (Accu-Chek) 1 ea 02 XX ; Start 04/06/17 at 02:00 Diagnostic Test (Pha) (Accu-Chek) 1 ea 02 XX ; Start 04/06/17 at 02:00 Miscellaneous Information 1 ea NOTE XX ; Start 04/05/17 at 08:00 Glucose (Glutose) 15 gm Q15M PRN PO DECREASED GLUCOSE; Start 04/05/17 at 08:00 Glucose (Glutose) 22.5 gm Q15M PRN PO DECREASED GLUCOSE; Start 04/05/17 at 08:00 Dextrose (D50w Syringe) 25 ml Q15M PRN IV DECREASED GLUCOSE; Start 04/05/17 at 08:00 Dextrose (D50w Syringe) 50 ml Q15M PRN IV DECREASED GLUCOSE; Start 04/05/17 at 08:00 Glucagon (Glucagen) 1 mg Q15M PRN IM DECREASED GLUCOSE; Start 04/05/17 at 08:00 Glucose (Glutose) 15 gm Q15M PRN BUCCAL DECREASED GLUCOSE; Start 04/05/17 at 08: 00 Insulin Glargine (Lantus) 11 unit DAILY@08 SC Last administered on 04/06/17 08: 13; Admin Dose 11 UNIT; Start 04/06/17 at 08:00 Aspirin (Aspirin) 81 mg DAILY PO Last administered on 04/06/17 08:52; Admin Dose 81 MG; Start 04/06/17 at 09:00 Nitroglycerin (Nitroglycerin (Sl Tab) 0.4 Mg) 1 tab Q5M PRN SL ANGINA; Start at 11:30 Benazepril HCl (Lotensin) 20 mg AM PO Last administered on 04/06/17 08:53; Admin Dose 20 MG; Start 04/06/17 at 09:00 CECILIO GARRIDO NP Apr 06, 2017 10:41
--- NOTE | 2017-04-06 11:57 | CONS ---
Date/Time of Note Date/Time of Note DATE: 04/06/17 TIME: 11:51 Assessment/Plan Assessment/Plan Chief Complaint/Hosp Course IMP: 1.Bradycardia-to high 50's with stable BP 2.Mitral regurgitation-severe by outside echo more moderate to severe currently here. NO signs of CHF. No sob 3.HTN 4.Dizziness-? etiology, HR only to high 50's with stable BP 5.abnl ecg-NL EF/Negative troop x 3 6.Hyponatremia Recc: -Tele -serial ecg's -Continue benazepril -Continue asa/statin -Follow volume status closely -Continue meclizine -Further eval and work up of mitral regurgitation as outpatient Problems: Consultation Date/Type/Reason Admit Date/Time Apr 05, 2017 at 05:22 Initial Consult Date 04/05/2017 Type of Consultation: cardiology Reason for Consultation bradycardia/mitral regurg Referring Provider: JUAN C PUGH Exam/Review of Systems Vital Signs Vitals Vital Signs Date Time Temp Pulse Resp B/P Pulse Ox O2 Delivery O2 Flow Rate FiO2 04/06/17 11:32 98.5 64 19 146/64 97 04/05/17 06:06 Room Air Intake and Output 04/05/17 04/05/17 04/06/17 15:00 23:00 07:00 Intake Total 500 ml Balance 500 ml Exam Review of Systems: CONSTITUTIONAL: No fevers, chills. PULMONARY: No sob CARDIOVASCULAR: No chest pain/palpitations GASTROINTESTINAL: No nausea/vomiting. GENITOURINARY: No hematuria/dysuria. MUSCULOSKELETAL: No myagias/arthalgias. PSYCHIATRIC: The patient denies depression. NEUROLOGIC: Dizziness Constitutional: alert Psych: no complaints Head: normocephalic ENMT: mucosa pink and moist Neck: jvd (8-9 cm water), supple Respiratory: clear to auscultation Cardiovascular: regular rate and rhythm Gastrointestinal: non-tender, soft Musculoskeletal: muscle tone (normal) Extremities: edema (none) Neurological: other (dizziness) Results Result Diagram: 04/05/17 0230 04/06/17 0903 Results 24 hrs Laboratory Tests Test 04/05/17 12:13 04/05/17 12:24 04/05/17 12:32 04/05/17 16:10 Bedside Glucose 111 Urine Osmolality 201 L Creatine Kinase 30 Creatine Kinase Index 2.1 Creatinine Kinase MB (Mass) 0.64 Troponin I < 0.012 Magnesium Level 1.6 L B-Type Natriuretic Peptide 543 H Test 04/05/17 17:48 04/05/17 18:10 04/05/17 20:30 04/06/17 00:44 Bedside Glucose 125 104 Creatine Kinase 27 21 L Creatine Kinase Index 2.1 2.1 Creatinine Kinase MB (Mass) 0.56 0.45 Troponin I < 0.012 < 0.012 Test 04/06/17 08:02 04/06/17 09:03 Bedside Glucose 93 Sodium Level 133 L Potassium Level 3.8 Chloride Level 88 L Carbon Dioxide Level 27 Anion Gap 22 H Blood Urea Nitrogen 21 H Creatinine 0.81 Glucose Level 84 Calcium Level 9.6 Medications Medications Current Medications Ondansetron HCl (Zofran Inj) 4 mg Q6H PRN IV NAUSEA AND/OR VOMITING; Start 04/05 at 07:00 Morphine Sulfate (morphine) 2 mg Q4H PRN IV Pain; Start 04/05/17 at 07:00 Atorvastatin Calcium (Lipitor) 20 mg QHS PO Last administered on 04/05/17 20:26 ; Admin Dose 20 MG; Start 04/05/17 at 21:00 Benazepril HCl (Lotensin) 40 mg QHS PO Last administered on 04/05/17 20:26; Admin Dose 40 MG; Start 04/05/17 at 21:00 Meclizine HCl (Antivert) 12.5 mg Q6H PRN PO DIZZINESS; Start 04/05/17 at 08:00 Metoprolol Succinate (Toprol Xl) 100 mg DAILY PO Last administered on 04/06/17 08:53; Admin Dose 100 MG; Start 04/05/17 at 09:00 Memantine (Namenda) 10 mg BID PO Last administered on 04/06/17 08:53; Admin Dose 10 MG; Start 04/05/17 at 09:00 Hydralazine HCl (Apresoline) 10 mg Q4H PRN IV sbp > 160; Start 04/05/17 at 08:00 Diagnostic Test (Pha) (Accu-Chek) 1 ea 02 XX ; Start 04/06/17 at 02:00 Diagnostic Test (Pha) (Accu-Chek) 1 ea 02 XX ; Start 04/06/17 at 02:00 Miscellaneous Information 1 ea NOTE XX ; Start 04/05/17 at 08:00 Glucose (Glutose) 15 gm Q15M PRN PO DECREASED GLUCOSE; Start 04/05/17 at 08:00 Glucose (Glutose) 22.5 gm Q15M PRN PO DECREASED GLUCOSE; Start 04/05/17 at 08:00 Dextrose (D50w Syringe) 25 ml Q15M PRN IV DECREASED GLUCOSE; Start 04/05/17 at 08:00 Dextrose (D50w Syringe) 50 ml Q15M PRN IV DECREASED GLUCOSE; Start 04/05/17 at 08:00 Glucagon (Glucagen) 1 mg Q15M PRN IM DECREASED GLUCOSE; Start 04/05/17 at 08:00 Glucose (Glutose) 15 gm Q15M PRN BUCCAL DECREASED GLUCOSE; Start 04/05/17 at 08: 00 Insulin Glargine (Lantus) 11 unit DAILY@08 SC Last administered on 04/06/17 08: 13; Admin Dose 11 UNIT; Start 04/06/17 at 08:00 Aspirin (Aspirin) 81 mg DAILY PO Last administered on 04/06/17 08:52; Admin Dose 81 MG; Start 04/06/17 at 09:00 Nitroglycerin (Nitroglycerin (Sl Tab) 0.4 Mg) 1 tab Q5M PRN SL ANGINA; Start at 11:30 Benazepril HCl (Lotensin) 20 mg AM PO Last administered on 04/06/17 08:53; Admin Dose 20 MG; Start 04/06/17 at 09:00 Heparin Sodium (Porcine) (Heparin (5000 Units/0.5 ml)) 5,000 unit BID SC ; Start 04/06/17 at 11:00 MELISSA CEJA Apr 06, 2017 11:56
[2017-04-06] MEDS: HEPARIN 5,000 UNIT/0.5 ML VIAL SC SCH ×2 (12:47→20:39)
[2017-04-06 13:35] LABS: MICROALBUMIN 0.4 mg/dL
--- NOTE | 2017-04-06 15:04 | RADRPT ---
Vent Rate: 61 bpm RR Interval: 0 msec NM Interval: 182 msec QRS Duration: 82 msec QT Interval: 462 msec QTC Interval: 465 msec P-R-T Paia: 52 - 59 - 85 degrees Normal sinus rhythm Normal ECG Electronically Signed By: Carlitos Reyes [id number]
--- NOTE | 2017-04-06 17:04 | RADRPT ---
PROCEDURE: MRI Brain and IACs, without contrast. CLINICAL INDICATION: Headache dizziness, left ear pain. TECHNIQUE: An MRI of the brain was performed utilizing the following sequences: Sagittal T1 weigh suha, axial T2 weighted, axial diffusion weighted (EPI technique [id number]), axial ADC mapping, and axia l FLAIR. Additionally, thin section imaging through the internal auditory canals was performed utili amorng the following sequences: 3D volume high resolution T2 weighted images. COMPARISON: Brain CT 03/31/2017. FINDINGS: MRI BRAIN: No diffusion weighted abnormalities are seen to suggest the presence of acute ischemia or recent inf arct. There is no intracranial hemorrhage, mass effect, or midline shift. No extra-axial fluid col lection is seen. The ventricles and sulci are mildly to moderately enlarged indicative of volume lo ss There are mild to moderate scattered foci of T2 FLAIR hyperintensity in the periventricular, deep, a nd subcortical white matter, which are nonspecific in etiology but likely reflect chronic small vess el ischemic changes. 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 There is associate d surrounding gradient susceptibility effect which likely represent hemosiderin. No abnormal intracranial vascular flow voids are noted. The visualized paranasal sinuses are clear. There is thinning of bilateral lens indicative of prior lens replacement. MRI IACS: The internal auditory canals are patent. The seventh and eighth cranial nerve complexes are unremar kable. No cerebellar pontine angle mass lesion is detected. The inner ear structures including the cochlea, vestibule and semicircular canals are unremarkable. No vascular loops are identified. Th e visualized fifth cranial nerves and Meckel's cave reveal no abnormality. The mastoid air cells are clear. IMPRESSION: 1. No acute intracranial infarction, hemorrhage or mass. 2. Mild to moderate chronic small vessel ischemic changes. 3. Mild to moderate generalized cerebral volume loss. 4. 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 5. Unremarkable unenhanced MRI of internal auditory canals. RPTAT: JJ .Bharathi Kline MD, MD Date Time Electronically viewed and signed by .Bharathi Kline MD, MD on 04/06/2017 17:03 .N/
[2017-04-06] MEDS: ATORVASTATIN 20 MG TAB PO SCH (20:22)
[2017-04-06] MEDS: BENAZEPRIL 40 MG TAB PO SCH (20:26)
[2017-04-07] VITALS (11 sets, daily range): BP systolic 142–166; BP diastolic 65–77; PULSE 63–70; RESP 19–20
[2017-04-07] MEDS: ACCU-CHEK XX SCH ×2 (02:00)
[2017-04-07 06:37] LABS: BASOPHILS % 0.5 % (0.0-2.0); EOSINOPHILS # 0.1 10^3/ul (0.0-0.5); EOSINOPHILS % 0.8 % (0.0-7.0); HEMATOCRIT 35.3 % (37.0-47.0); HEMOGLOBIN 12.3 g/dl (12.0-16.0); LYMPHOCYTES # 2.7 10^3/ul (0.8-2.9); LYMPHOCYTES % 32.6 % (15.0-51.0); MEAN CORPUSCULAR HGB CONC 34.8 g/dl (32.0-37.0); MEAN CORPUSCULAR VOLUME 83.3 fl (82.0-101.0); MEAN PLATELET VOLUME 10.7 fl (7.4-10.4); MONOCYTE # 0.8 10^3/ul (0.3-0.9); MONOCYTES % 9.5 % (0.0-11.0); NEUTROPHIL # 4.7 10^3/ul (1.6-7.5); NEUTROPHILS % 56.4 % (39.0-77.0); PLATELET COUNT 251 10^3/UL (140-415); RED BLOOD COUNT 4.24 10^6/ul (4.20-5.40); RED CELL DISTRIBUTION WIDTH 13.1 % (11.5-14.5); WHITE BLOOD COUNT 8.3 10^3/ul (4.8-10.8)
[2017-04-07 07:04] LABS: CALCIUM 9.7 mg/dl (8.4-10.2); CREATININE 0.69 mg/dl (0.44-1.00); MAGNESIUM 1.5 mg/dl (1.7-2.5); PHOSPHORUS 3.2 mg/dl (2.5-4.9); POTASSIUM 3.8 mmol/L (3.5-5.1)
[2017-04-07] MEDS: INSULIN ASPART [NOVOLOG] 3 ML PEN SC SCH ×4 (07:55→21:00)
[2017-04-07] MEDS: ASPIRIN 81 MG TAB PO SCH (08:21)
[2017-04-07] MEDS: BENAZEPRIL 20 MG TAB PO SCH (08:22)
[2017-04-07] MEDS: metFORMIN 500 MG TAB PO SCH ×2 (08:22→17:57)
[2017-04-07] MEDS: MEMANTINE 10 MG TAB PO SCH ×2 (08:22→20:17)
[2017-04-07] MEDS: METOPROLOL (XL) 100 MG TAB PO SCH (08:22)
[2017-04-07] MEDS: INSULIN GLARGINE [LANtus] 3 ML PEN SC SCH (08:24)
[2017-04-07] MEDS: HEPARIN 5,000 UNIT/0.5 ML VIAL SC SCH ×2 (08:25→20:20)
[2017-04-07] MEDS ORDERED: SOD CHLORIDE 0.9% 500 ML IV ONE (10:00)
--- NOTE | 2017-04-07 10:06 | PN ---
Date/Time of Note Date/Time of Note DATE: 04/07/17 TIME: 10:02 Assessment/Plan VTE Prophylaxis VTE Prophylaxis Intervention: heparin Lines/Catheters IV [facility]from [facility] Urinary Cath still in place: No Assessment/Plan Problems: (1) Hypertension Status: Chronic Comment: This patient according to the family and according the charts has had 3 episodes of hyponatremia which all relates when she has been treated with thiazide type diuretic. In the setting of believe the probably the easiest thing to do would be the avoidance of the usage of diuretic therapy for hypertension rely more upon drug such as ALYSA inhibitors or A2 receptor ash agents and/or beta blockade Qualifiers: Hypertension type: essential hypertension Qualified Code: I10 - Essential hypertension (2) Diastolic dysfunction Status: Chronic Comment: Low-dose beta-blockade would be appropriate in the setting. Assistance from cardiology appreciate (3) Mitral valve regurgitation Status: Chronic Comment: Afterload reduction using ALYSA inhibitor. Appreciate input from cardiology this is appropriate for outpatient evaluation Qualifiers: Cardiac valve disease etiology: etiology unspecified Qualified Code: I34.0 - Mitral valve insufficiency, unspecified etiology (4) Diabetes mellitus type 2 in nonobese Status: Chronic Comment: Adequate control at this time (5) Hyperlipidemia Status: Chronic Comment: Given the valvular disease continuation of statin drugs as appropriate Qualifiers: Hyperlipidemia type: pure hypercholesterolemia Qualified Code: E78.00 - Pure hypercholesterolemia (6) Gastroesophageal reflux disease Status: Chronic Comment: Noted. Qualifiers: Esophagitis presence: without esophagitis Qualified Code: K21.9 - Gastroesophageal reflux disease without esophagitis (7) Cholelithiases Status: Acute Comment: Noted. No intervention at this time Qualifiers: Cholelithiasis location: gallbladder Cholecystitis presence: without cholecystitis Biliary obstruction: without biliary obstruction Qualified Code : K80.20 - Calculus of gallbladder without cholecystitis without obstruction (8) Hyponatremia Status: Acute Comment: This is resolving nicely. Please note this is partially from the thiazide and dehydrational. She is still dehydrated and as such on another fluid bolus will be undertaken. Assuming everything goes well she should be able to be discharged in the morning. Please note her MRI scan and evaluation of neurologic status was unremarkable (9) Headache Status: Acute Comment: Her headache has improved with the resolution of the hyponatremia Qualifiers: Headache type: unspecified Headache chronicity pattern: unspecified pattern Intractability: intractable Qualified Code: R51 - Intractable headache, unspecified chronicity pattern, unspecified headache type Subjective 24 Hr Interval Summary Free Text/Dictation Patient informs that she feels significantly better. Her headaches have resolved she is not having other issues. Constitutional: no complaints (Denies fevers chills or sweats) Eyes: no complaints ENT: no complaints Respiratory: no complaints (Specifically denies shortness of breath PND orthopnea cough or wheezing) Cardiovascular: no complaints Gastrointestinal: no complaints Genitourinary: no complaints Musculoskeletal: no complaints Exam/Review of Systems Vital Signs Vitals Vital Signs Date Time Temp Pulse Resp B/P Pulse Ox O2 Delivery O2 Flow Rate FiO2 04/07/17 08:01 64 04/07/17 07:00 98.3 19 152/69 98 04/05/17 06:06 Room Air Intake and Output 04/06/17 04/06/17 04/07/17 15:00 23:00 07:00 Intake Total 1100 ml 240 ml Balance 1100 ml 240 ml Exam Constitutional: alert, oriented Neck: non-tender, supple Respiratory: clear to auscultation, normal air movement Cardiovascular: murmurs/extra sounds (Crescendo decrescendo murmur at the left sternal border lower), nl pulses, regular rate and rhythm Gastrointestinal: nl liver, spleen, non-tender, soft Results Result Diagram: 04/07/17 0523 04/07/17 0523 Results 24 hrs Laboratory Tests Test 04/06/17 11:58 04/06/17 17:49 04/06/17 20:21 04/07/17 05:23 Bedside Glucose 72 95 100 White Blood Count 8.3 Red Blood Count 4.24 Hemoglobin 12.3 Hematocrit 35.3 L Mean Corpuscular Volume 83.3 Mean Corpuscular Hemoglobin 29.0 Mean Corpuscular Hemoglobin Concent 34.8 Red Cell Distribution Width 13.1 Platelet Count 251 Mean Platelet Volume 10.7 H Neutrophils % 56.4 Lymphocytes % 32.6 Monocytes % 9.5 Eosinophils % 0.8 Basophils % 0.5 Nucleated Red Blood Cells % 0.0 Neutrophils # 4.7 Lymphocytes # 2.7 Monocytes # 0.8 Eosinophils # 0.1 Basophils # 0.0 Nucleated Red Blood Cells # 0.0 Sodium Level 131 L Potassium Level 3.8 Chloride Level 88 L Carbon Dioxide Level 27 Anion Gap 20 H Blood Urea Nitrogen 22 H Creatinine 0.69 Glucose Level 77 Hemoglobin A1c 5.5 Calcium Level 9.7 Phosphorus Level 3.2 Magnesium Level 1.5 L Test 04/07/17 08:20 Bedside Glucose 117 Medications Medications Current Medications Ondansetron HCl (Zofran Inj) 4 mg Q6H PRN IV NAUSEA AND/OR VOMITING Last administered on 04/06/17 17:59; Admin Dose 4 MG; Start 04/05/17 at 07:00 Morphine Sulfate (morphine) 2 mg Q4H PRN IV Pain; Start 04/05/17 at 07:00 Atorvastatin Calcium (Lipitor) 20 mg QHS PO Last administered on 04/06/17 20:22 ; Admin Dose 20 MG; Start 04/05/17 at 21:00 Benazepril HCl (Lotensin) 40 mg QHS PO Last administered on 04/06/17 20:26; Admin Dose 40 MG; Start 04/05/17 at 21:00 Meclizine HCl (Antivert) 12.5 mg Q6H PRN PO DIZZINESS; Start 04/05/17 at 08:00 Metoprolol Succinate (Toprol Xl) 100 mg DAILY PO Last administered on 04/07/17 08:22; Admin Dose 100 MG; Start 04/05/17 at 09:00 Memantine (Namenda) 10 mg BID PO Last administered on 04/07/17 08:22; Admin Dose 10 MG; Start 04/05/17 at 09:00 Hydralazine HCl (Apresoline) 10 mg Q4H PRN IV sbp > 160; Start 04/05/17 at 08:00 Diagnostic Test (Pha) (Accu-Chek) 1 ea 02 XX ; Start 04/06/17 at 02:00 Diagnostic Test (Pha) (Accu-Chek) 1 ea 02 XX ; Start 04/06/17 at 02:00 Miscellaneous Information 1 ea NOTE XX ; Start 04/05/17 at 08:00 Glucose (Glutose) 15 gm Q15M PRN PO DECREASED GLUCOSE; Start 04/05/17 at 08:00 Glucose (Glutose) 22.5 gm Q15M PRN PO DECREASED GLUCOSE; Start 04/05/17 at 08:00 Dextrose (D50w Syringe) 25 ml Q15M PRN IV DECREASED GLUCOSE; Start 04/05/17 at 08:00 Dextrose (D50w Syringe) 50 ml Q15M PRN IV DECREASED GLUCOSE; Start 04/05/17 at 08:00 Glucagon (Glucagen) 1 mg Q15M PRN IM DECREASED GLUCOSE; Start 04/05/17 at 08:00 Glucose (Glutose) 15 gm Q15M PRN BUCCAL DECREASED GLUCOSE; Start 04/05/17 at 08: 00 Insulin Glargine (Lantus) 11 unit DAILY@08 SC Last administered on 04/07/17 08: 24; Admin Dose 11 UNIT; Start 04/06/17 at 08:00 Aspirin (Aspirin) 81 mg DAILY PO Last administered on 04/07/17 08:21; Admin Dose 81 MG; Start 04/06/17 at 09:00 Nitroglycerin (Nitroglycerin (Sl Tab) 0.4 Mg) 1 tab Q5M PRN SL ANGINA; Start at 11:30 Benazepril HCl (Lotensin) 20 mg AM PO Last administered on 04/07/17 08:22; Admin Dose 20 MG; Start 04/06/17 at 09:00 Heparin Sodium (Porcine) 5000 unit 5,000 unit BID SC Last administered on 08:25; Admin Dose 5,000 UNIT; Start 04/06/17 at 11:00 Sodium Chloride (NS) 500 ml @ 500 mls/hr Q1H ONCE IV ; Start 04/07/17 at 10:00; Stop 04/07/17 at 10:59 SUSAN FAIR MD Apr 07, 2017 10:06
[2017-04-07] MEDS ORDERED: morphine 2 MG INJ IV PRN (12:00)
--- NOTE | 2017-04-07 13:40 | CONS ---
Date/Time of Note Date/Time of Note DATE: 04/07/17 TIME: 13:37 Assessment/Plan Assessment/Plan Additional Assessment/Plan Sinus Bradycardia Mitral Regurgitation HTN Diabetes dyslipidemia Hyponatremia Stopped Toprol Continue Benazepril Continue Insulin Continue Lipitor Continue GI and DVT Prophylaxis Consultation Date/Type/Reason Admit Date/Time Apr 05, 2017 at 05:22 Constitutional: no complaints (Denies fevers chills or sweats) Eyes: no complaints ENT: no complaints Respiratory: no complaints (Specifically denies shortness of breath PND orthopnea cough or wheezing) Cardiovascular: no complaints Gastrointestinal: no complaints Genitourinary: no complaints Musculoskeletal: no complaints Psychological: no complaints Past Surgical History Past Surgical Hx: no surgical history Social History Smoking Status: Never smoker Exam/Review of Systems Vital Signs Vitals Vital Signs Date Time Temp Pulse Resp B/P Pulse Ox O2 Delivery O2 Flow Rate FiO2 04/07/17 11:06 98.2 61 19 166/77 98 04/05/17 06:06 Room Air Intake and Output 04/06/17 04/06/17 04/07/17 15:00 23:00 07:00 Intake Total 1100 ml 240 ml Balance 1100 ml 240 ml Exam Constitutional: alert Head: atraumatic, normocephalic Respiratory: clear to auscultation Cardiovascular: regular rate and rhythm Gastrointestinal: nl liver, spleen, non-tender, soft Extremities: normal pulses Results Result Diagram: 04/07/17 0523 04/07/17 0523 Results 24 hrs Laboratory Tests Test 04/06/17 17:49 04/06/17 20:21 04/07/17 05:23 04/07/17 08:20 Bedside Glucose 95 100 117 White Blood Count 8.3 Red Blood Count 4.24 Hemoglobin 12.3 Hematocrit 35.3 L Mean Corpuscular Volume 83.3 Mean Corpuscular Hemoglobin 29.0 Mean Corpuscular Hemoglobin Concent 34.8 Red Cell Distribution Width 13.1 Platelet Count 251 Mean Platelet Volume 10.7 H Neutrophils % 56.4 Lymphocytes % 32.6 Monocytes % 9.5 Eosinophils % 0.8 Basophils % 0.5 Nucleated Red Blood Cells % 0.0 Neutrophils # 4.7 Lymphocytes # 2.7 Monocytes # 0.8 Eosinophils # 0.1 Basophils # 0.0 Nucleated Red Blood Cells # 0.0 Sodium Level 131 L Potassium Level 3.8 Chloride Level 88 L Carbon Dioxide Level 27 Anion Gap 20 H Blood Urea Nitrogen 22 H Creatinine 0.69 Glucose Level 77 Hemoglobin A1c 5.5 Calcium Level 9.7 Phosphorus Level 3.2 Magnesium Level 1.5 L Random Cortisol 8.8 Test 04/07/17 11:44 Bedside Glucose 73 Medications Medications Current Medications Ondansetron HCl (Zofran Inj) 4 mg Q6H PRN IV NAUSEA AND/OR VOMITING Last administered on 04/06/17 17:59; Admin Dose 4 MG; Start 04/05/17 at 07:00 Atorvastatin Calcium (Lipitor) 20 mg QHS PO Last administered on 04/06/17 20:22 ; Admin Dose 20 MG; Start 04/05/17 at 21:00 Benazepril HCl (Lotensin) 40 mg QHS PO Last administered on 04/06/17 20:26; Admin Dose 40 MG; Start 04/05/17 at 21:00 Meclizine HCl (Antivert) 12.5 mg Q6H PRN PO DIZZINESS; Start 04/05/17 at 08:00 Metoprolol Succinate (Toprol Xl) 100 mg DAILY PO Last administered on 04/07/17 08:22; Admin Dose 100 MG; Start 04/05/17 at 09:00 Memantine (Namenda) 10 mg BID PO Last administered on 04/07/17 08:22; Admin Dose 10 MG; Start 04/05/17 at 09:00 Hydralazine HCl (Apresoline) 10 mg Q4H PRN IV sbp > 160; Start 04/05/17 at 08:00 Diagnostic Test (Pha) (Accu-Chek) 1 ea 02 XX ; Start 04/06/17 at 02:00 Diagnostic Test (Pha) (Accu-Chek) 1 ea 02 XX ; Start 04/06/17 at 02:00 Miscellaneous Information 1 ea NOTE XX ; Start 04/05/17 at 08:00 Glucose (Glutose) 15 gm Q15M PRN PO DECREASED GLUCOSE; Start 04/05/17 at 08:00 Glucose (Glutose) 22.5 gm Q15M PRN PO DECREASED GLUCOSE; Start 04/05/17 at 08:00 Dextrose (D50w Syringe) 25 ml Q15M PRN IV DECREASED GLUCOSE; Start 04/05/17 at 08:00 Dextrose (D50w Syringe) 50 ml Q15M PRN IV DECREASED GLUCOSE; Start 04/05/17 at 08:00 Glucagon (Glucagen) 1 mg Q15M PRN IM DECREASED GLUCOSE; Start 04/05/17 at 08:00 Glucose (Glutose) 15 gm Q15M PRN BUCCAL DECREASED GLUCOSE; Start 04/05/17 at 08: 00 Insulin Glargine (Lantus) 11 unit DAILY@08 SC Last administered on 04/07/17 08: 24; Admin Dose 11 UNIT; Start 04/06/17 at 08:00 Aspirin (Aspirin) 81 mg DAILY PO Last administered on 04/07/17 08:21; Admin Dose 81 MG; Start 04/06/17 at 09:00 Nitroglycerin (Nitroglycerin (Sl Tab) 0.4 Mg) 1 tab Q5M PRN SL ANGINA; Start at 11:30 Heparin Sodium (Porcine) (Heparin (5000 Units/0.5 ml)) 5,000 unit BID SC Last administered on 04/07/17 08:25; Admin Dose 5,000 UNIT; Start 04/06/17 at 11:00 Benazepril HCl (Lotensin) 40 mg AM PO ; Start 04/08/17 at 09:00 Morphine Sulfate (morphine) 2 mg Q4H PRN IV Pain; Start 04/07/17 at 12:00 SEGUNDO CEBALLOS M.D. Apr 07, 2017 13:40
--- NOTE | 2017-04-07 13:52 | CONS ---
Date/Time of Note Date/Time of Note DATE: 04/07/17 TIME: 13:51 Assessment/Plan Assessment/Plan Chief Complaint/Hosp Course 1. Hyponatremia. Etiology secondary to hydrochlorothiazide effect, volume depletion. The patient's sodium level has improved with discontinuing hydrochlorothiazide and gentle hydration. Sodium levels have been rising appropriately. At this point, we will continue current treatment plan, continue supportive care. We will follow up repeat sodium level this morning. Would recommend to discontinue hydrochlorothiazide. 2. Nausea, vomiting, likely from hyponatremia. The patient is improved. Continue to monitor. 3. Mild hypertension. Continue current treatment plan. 4. Diabetes. Continue Accu-Cheks and insulin sliding scale. 5. Severe mitral regurgitation. The patient is pending cardiac evaluation. 6. Hypokalemia. We will replete potassium chloride. Problems: Consultation Date/Type/Reason Admit Date/Time Apr 05, 2017 at 05:22 Initial Consult Date Type of Consultation: nephrology Referring Provider: JUAN C PUGH 24 HR Interval Summary Free Text/Dictation all noted no new c/o. Exam/Review of Systems Vital Signs Vitals Vital Signs Date Time Temp Pulse Resp B/P Pulse Ox O2 Delivery O2 Flow Rate FiO2 04/07/17 11:06 98.2 61 19 166/77 98 04/05/17 06:06 Room Air Intake and Output 04/06/17 04/06/17 04/07/17 15:00 23:00 07:00 Intake Total 1100 ml 240 ml Balance 1100 ml 240 ml Exam ENMT: nl external ears & nose, nl lips & teeth, nl nasal mucosa & septum Neck: non-tender, supple Respiratory: clear to auscultation, normal air movement Cardiovascular: nl pulses, regular rate and rhythm Gastrointestinal: nl liver, spleen, non-tender, soft Extremities: normal pulses Results Result Diagram: 04/07/1752204/07/17522 Results 24 hrs Laboratory Tests Test 04/06/17 17:49 04/06/17 20:21 04/07/17 05:23 04/07/17 08:20 Bedside Glucose 95 100 117 White Blood Count 8.3 Red Blood Count 4.24 Hemoglobin 12.3 Hematocrit 35.3 L Mean Corpuscular Volume 83.3 Mean Corpuscular Hemoglobin 29.0 Mean Corpuscular Hemoglobin Concent 34.8 Red Cell Distribution Width 13.1 Platelet Count 251 Mean Platelet Volume 10.7 H Neutrophils % 56.4 Lymphocytes % 32.6 Monocytes % 9.5 Eosinophils % 0.8 Basophils % 0.5 Nucleated Red Blood Cells % 0.0 Neutrophils # 4.7 Lymphocytes # 2.7 Monocytes # 0.8 Eosinophils # 0.1 Basophils # 0.0 Nucleated Red Blood Cells # 0.0 Sodium Level 131 L Potassium Level 3.8 Chloride Level 88 L Carbon Dioxide Level 27 Anion Gap 20 H Blood Urea Nitrogen 22 H Creatinine 0.69 Glucose Level 77 Hemoglobin A1c 5.5 Calcium Level 9.7 Phosphorus Level 3.2 Magnesium Level 1.5 L Random Cortisol 8.8 Test 04/07/17 11:44 Bedside Glucose 73 Medications Medications Current Medications Ondansetron HCl (Zofran Inj) 4 mg Q6H PRN IV NAUSEA AND/OR VOMITING Last administered on 04/06/17 17:59; Admin Dose 4 MG; Start 04/05/17 at 07:00 Atorvastatin Calcium (Lipitor) 20 mg QHS PO Last administered on 04/06/17 20:22 ; Admin Dose 20 MG; Start 04/05/17 at 21:00 Meclizine HCl (Antivert) 12.5 mg Q6H PRN PO DIZZINESS; Start 04/05/17 at 08:00 Memantine (Namenda) 10 mg BID PO Last administered on 04/07/17 08:22; Admin Dose 10 MG; Start 04/05/17 at 09:00 Hydralazine HCl (Apresoline) 10 mg Q4H PRN IV sbp > 160; Start 04/05/17 at 08:00 Diagnostic Test (Pha) (Accu-Chek) 1 ea 02 XX ; Start 04/06/17 at 02:00 Diagnostic Test (Pha) (Accu-Chek) 1 ea 02 XX ; Start 04/06/17 at 02:00 Miscellaneous Information 1 ea NOTE XX ; Start 04/05/17 at 08:00 Glucose (Glutose) 15 gm Q15M PRN PO DECREASED GLUCOSE; Start 04/05/17 at 08:00 Glucose (Glutose) 22.5 gm Q15M PRN PO DECREASED GLUCOSE; Start 04/05/17 at 08:00 Dextrose (D50w Syringe) 25 ml Q15M PRN IV DECREASED GLUCOSE; Start 04/05/17 at 08:00 Dextrose (D50w Syringe) 50 ml Q15M PRN IV DECREASED GLUCOSE; Start 04/05/17 at 08:00 Glucagon (Glucagen) 1 mg Q15M PRN IM DECREASED GLUCOSE; Start 04/05/17 at 08:00 Glucose (Glutose) 15 gm Q15M PRN BUCCAL DECREASED GLUCOSE; Start 04/05/17 at 08: 00 Insulin Glargine (Lantus) 11 unit DAILY@08 SC Last administered on 04/07/17 08: 24; Admin Dose 11 UNIT; Start 04/06/17 at 08:00 Aspirin (Aspirin) 81 mg DAILY PO Last administered on 04/07/17 08:21; Admin Dose 81 MG; Start 04/06/17 at 09:00 Nitroglycerin (Nitroglycerin (Sl Tab) 0.4 Mg) 1 tab Q5M PRN SL ANGINA; Start at 11:30 Heparin Sodium (Porcine) (Heparin (5000 Units/0.5 ml)) 5,000 unit BID SC Last administered on 04/07/17 08:25; Admin Dose 5,000 UNIT; Start 04/06/17 at 11:00 Benazepril HCl (Lotensin) 40 mg AM PO ; Start 04/08/17 at 09:00 Morphine Sulfate (morphine) 2 mg Q4H PRN IV Pain; Start 04/07/17 at 12:00 HUMBERTO MCPHERSON MD Apr 07, 2017 13:52
[2017-04-07] MEDS: ATORVASTATIN 20 MG TAB PO SCH (20:17)
[2017-04-08] VITALS (12 sets, daily range): BP systolic 130–180; BP diastolic 59–77; PULSE 61–70; RESP 17–20
[2017-04-08] MEDS: ACCU-CHEK XX SCH ×2 (02:00)
[2017-04-08 06:49] LABS: CALCIUM 9.5 mg/dl (8.4-10.2); CREATININE 0.63 mg/dl (0.44-1.00); POTASSIUM 4.1 mmol/L (3.5-5.1)
[2017-04-08] MEDS: MEMANTINE 10 MG TAB PO SCH ×2 (08:27→20:23)
[2017-04-08] MEDS: BENAZEPRIL 40 MG TAB PO SCH (08:27)
[2017-04-08] MEDS: metFORMIN 500 MG TAB PO SCH ×2 (08:27→18:23)
[2017-04-08] MEDS: ASPIRIN 81 MG TAB PO SCH (08:27)
[2017-04-08] MEDS: INSULIN ASPART [NOVOLOG] 3 ML PEN SC SCH ×4 (08:44→21:00)
[2017-04-08] MEDS: INSULIN GLARGINE [LANtus] 3 ML PEN SC SCH (08:44)
[2017-04-08] MEDS: HEPARIN 5,000 UNIT/0.5 ML VIAL SC SCH ×2 (08:45→20:26)
--- NOTE | 2017-04-08 11:21 | PN ---
Date/Time of Note Date/Time of Note DATE: 04/08/17 TIME: 11:19 Assessment/Plan VTE Prophylaxis VTE Prophylaxis Intervention: heparin Lines/Catheters IV C[facility] Type (from [facility] Peripheral IV Urinary Cath still in place: No Assessment/Plan Problems: (1) Anxiety Status: Acute Comment: Noted. Attempt to be as supportive as possible (2) Hyponatremia Status: Acute Comment: Resolving nicely. Please note the patient has been off the hydrochlorothiazide since admission. As such holding the hydrochlorothiazide is already accomplished (3) Hypertension Status: Chronic Comment: Usage of a blood road traffic controller medication without a thiazide diuretic in this individual circumstances appropriate and successful Qualifiers: Hypertension type: essential hypertension Qualified Code: I10 - Essential hypertension (4) Diastolic dysfunction Status: Chronic Comment: Noted. The beta-ash was held by the weld inspector. In terms of the formalized evaluation for the mitral regurgitation this will be commented on further by cardiology (5) Mitral valve regurgitation Status: Chronic Comment: As noted above cardiology consult to comment more directly on this today Qualifiers: Cardiac valve disease etiology: etiology unspecified Qualified Code: I34.0 - Mitral valve insufficiency, unspecified etiology (6) Diabetes mellitus type 2 in nonobese Status: Chronic Comment: Adequate control can liberalize diet (7) Hyperlipidemia Status: Chronic Comment: Continue statin therapy Qualifiers: Hyperlipidemia type: pure hypercholesterolemia Qualified Code: E78.00 - Pure hypercholesterolemia Subjective 24 Hr Interval Summary Free Text/Dictation Patient reports she feels tired and very hungry. Constitutional: no complaints ENT: no complaints Respiratory: no complaints Cardiovascular: no complaints Gastrointestinal: no complaints Genitourinary: no complaints Neurologic: headache (Mild headache) Exam/Review of Systems Vital Signs Vitals Vital Signs Date Time Temp Pulse Resp B/P Pulse Ox O2 Delivery O2 Flow Rate FiO2 04/08/17 08:08 97.9 68 18 130/59 97 04/05/17 06:06 Room Air Intake and Output 04/07/17 04/07/17 04/08/17 15:00 23:00 07:00 Intake Total 1000 ml 300 ml Balance 1000 ml 300 ml Exam Constitutional: alert, oriented Neck: non-tender, supple Respiratory: clear to auscultation, normal air movement Cardiovascular: murmurs/extra sounds (Mitral regurgitation merge murmur), regular rate and rhythm Extremities: normal pulses Results Result Diagram: 04/07/17 0523 04/08/17 0518 Results 24 hrs Laboratory Tests Test 04/07/17 11:44 04/07/17 17:27 04/07/17 20:15 04/08/17 05:18 Bedside Glucose 73 99 112 Sodium Level 134 L Potassium Level 4.1 Chloride Level 92 L Carbon Dioxide Level 28 Anion Gap 18 H Blood Urea Nitrogen 15 Creatinine 0.63 Glucose Level 88 Calcium Level 9.5 Test 04/08/17 07:59 Bedside Glucose 154 Medications Medications Current Medications Ondansetron HCl (Zofran Inj) 4 mg Q6H PRN IV NAUSEA AND/OR VOMITING Last administered on 04/06/17 17:59; Admin Dose 4 MG; Start 04/05/17 at 07:00 Atorvastatin Calcium (Lipitor) 20 mg QHS PO Last administered on 04/07/17 20:17 ; Admin Dose 20 MG; Start 04/05/17 at 21:00 Meclizine HCl (Antivert) 12.5 mg Q6H PRN PO DIZZINESS; Start 04/05/17 at 08:00 Memantine (Namenda) 10 mg BID PO Last administered on 04/08/17 08:27; Admin Dose 10 MG; Start 04/05/17 at 09:00 Hydralazine HCl (Apresoline) 10 mg Q4H PRN IV sbp > 160; Start 04/05/17 at 08:00 Diagnostic Test (Pha) (Accu-Chek) 1 ea 02 XX ; Start 04/06/17 at 02:00 Diagnostic Test (Pha) (Accu-Chek) 1 ea 02 XX ; Start 04/06/17 at 02:00 Miscellaneous Information 1 ea NOTE XX ; Start 04/05/17 at 08:00 Glucose (Glutose) 15 gm Q15M PRN PO DECREASED GLUCOSE; Start 04/05/17 at 08:00 Glucose (Glutose) 22.5 gm Q15M PRN PO DECREASED GLUCOSE; Start 04/05/17 at 08:00 Dextrose (D50w Syringe) 25 ml Q15M PRN IV DECREASED GLUCOSE; Start 04/05/17 at 08:00 Dextrose (D50w Syringe) 50 ml Q15M PRN IV DECREASED GLUCOSE; Start 04/05/17 at 08:00 Glucagon (Glucagen) 1 mg Q15M PRN IM DECREASED GLUCOSE; Start 04/05/17 at 08:00 Glucose (Glutose) 15 gm Q15M PRN BUCCAL DECREASED GLUCOSE; Start 04/05/17 at 08: 00 Insulin Glargine (Lantus) 11 unit DAILY@08 SC Last administered on 04/08/17 08: 44; Admin Dose 11 UNIT; Start 04/06/17 at 08:00 Aspirin (Aspirin) 81 mg DAILY PO Last administered on 04/08/17 08:27; Admin Dose 81 MG; Start 04/06/17 at 09:00 Nitroglycerin (Nitroglycerin (Sl Tab) 0.4 Mg) 1 tab Q5M PRN SL ANGINA; Start at 11:30 Heparin Sodium (Porcine) (Heparin (5000 Units/0.5 ml)) 5,000 unit BID SC Last administered on 04/08/17 08:45; Admin Dose 5,000 UNIT; Start 04/06/17 at 11:00 Benazepril HCl (Lotensin) 40 mg AM PO Last administered on 04/08/17 08:27; Admin Dose 40 MG; Start 04/08/17 at 09:00 Morphine Sulfate (morphine) 2 mg Q4H PRN IV Pain; Start 04/07/17 at 12:00 SUSAN FAIR MD Apr 08, 2017 11:21
--- NOTE | 2017-04-08 12:48 | CONS ---
Date/Time of Note Date/Time of Note DATE: 04/08/17 TIME: 12:48 Assessment/Plan Assessment/Plan Chief Complaint/Hosp Course 1. Hyponatremia. Etiology secondary to hydrochlorothiazide effect, volume depletion. The patient's sodium level has improved with discontinuing hydrochlorothiazide and gentle hydration. Sodium levels have been rising appropriately. At this point, we will continue current treatment plan, continue supportive care. We will follow up repeat sodium level this morning. Would recommend to discontinue hydrochlorothiazide. 2. Nausea, vomiting, likely from hyponatremia. The patient is improved. Continue to monitor. 3. Mild hypertension. Continue current treatment plan. 4. Diabetes. Continue Accu-Cheks and insulin sliding scale. 5. Severe mitral regurgitation. The patient is pending cardiac evaluation. 6. Hypokalemia. We will replete potassium chloride. Problems: Consultation Date/Type/Reason Admit Date/Time Apr 05, 2017 at 05:22 Type of Consultation: nephrology Referring Provider: JUAN C PUGH 24 HR Interval Summary Free Text/Dictation all noted na stable Exam/Review of Systems Vital Signs Vitals Vital Signs Date Time Temp Pulse Resp B/P Pulse Ox O2 Delivery O2 Flow Rate FiO2 04/08/17 11:24 97.1 68 134/60 98 04/08/17 08:08 18 04/05/17 06:06 Room Air Intake and Output 04/07/17 04/07/17 04/08/17 15:00 23:00 07:00 Intake Total 1000 ml 300 ml Balance 1000 ml 300 ml Exam Constitutional: alert, oriented, well developed Head: atraumatic, normocephalic Neck: non-tender, supple Respiratory: clear to auscultation, normal air movement Cardiovascular: nl pulses, regular rate and rhythm Gastrointestinal: nl liver, spleen, non-tender, soft Results Result Diagram: 04/07/17 0523 04/08/17 0518 Results 24 hrs Laboratory Tests Test 04/07/17 17:27 04/07/17 20:15 04/08/17 05:18 04/08/17 07:59 Bedside Glucose 99 112 154 Sodium Level 134 L Potassium Level 4.1 Chloride Level 92 L Carbon Dioxide Level 28 Anion Gap 18 H Blood Urea Nitrogen 15 Creatinine 0.63 Glucose Level 88 Calcium Level 9.5 Test 04/08/17 12:14 Bedside Glucose 117 Medications Medications Current Medications Ondansetron HCl (Zofran Inj) 4 mg Q6H PRN IV NAUSEA AND/OR VOMITING Last administered on 04/06/17 17:59; Admin Dose 4 MG; Start 04/05/17 at 07:00 Atorvastatin Calcium (Lipitor) 20 mg QHS PO Last administered on 04/07/17 20:17 ; Admin Dose 20 MG; Start 04/05/17 at 21:00 Meclizine HCl (Antivert) 12.5 mg Q6H PRN PO DIZZINESS; Start 04/05/17 at 08:00 Memantine (Namenda) 10 mg BID PO Last administered on 04/08/17 08:27; Admin Dose 10 MG; Start 04/05/17 at 09:00 Hydralazine HCl (Apresoline) 10 mg Q4H PRN IV sbp > 160; Start 04/05/17 at 08:00 Diagnostic Test (Pha) (Accu-Chek) 1 ea 02 XX ; Start 04/06/17 at 02:00 Diagnostic Test (Pha) (Accu-Chek) 1 ea 02 XX ; Start 04/06/17 at 02:00 Miscellaneous Information 1 ea NOTE XX ; Start 04/05/17 at 08:00 Glucose (Glutose) 15 gm Q15M PRN PO DECREASED GLUCOSE; Start 04/05/17 at 08:00 Glucose (Glutose) 22.5 gm Q15M PRN PO DECREASED GLUCOSE; Start 04/05/17 at 08:00 Dextrose (D50w Syringe) 25 ml Q15M PRN IV DECREASED GLUCOSE; Start 04/05/17 at 08:00 Dextrose (D50w Syringe) 50 ml Q15M PRN IV DECREASED GLUCOSE; Start 04/05/17 at 08:00 Glucagon (Glucagen) 1 mg Q15M PRN IM DECREASED GLUCOSE; Start 04/05/17 at 08:00 Glucose (Glutose) 15 gm Q15M PRN BUCCAL DECREASED GLUCOSE; Start 04/05/17 at 08: 00 Insulin Glargine (Lantus) 11 unit DAILY@08 SC Last administered on 04/08/17 08: 44; Admin Dose 11 UNIT; Start 04/06/17 at 08:00 Aspirin (Aspirin) 81 mg DAILY PO Last administered on 04/08/17 08:27; Admin Dose 81 MG; Start 04/06/17 at 09:00 Nitroglycerin (Nitroglycerin (Sl Tab) 0.4 Mg) 1 tab Q5M PRN SL ANGINA; Start at 11:30 Heparin Sodium (Porcine) (Heparin (5000 Units/0.5 ml)) 5,000 unit BID SC Last administered on 04/08/17 08:45; Admin Dose 5,000 UNIT; Start 04/06/17 at 11:00 Benazepril HCl (Lotensin) 40 mg AM PO Last administered on 04/08/17 08:27; Admin Dose 40 MG; Start 04/08/17 at 09:00 Morphine Sulfate (morphine) 2 mg Q4H PRN IV Pain; Start 04/07/17 at 12:00 HUMBERTO MCPHERSON MD Apr 08, 2017 12:48
--- NOTE | 2017-04-08 14:32 | CONS ---
Date/Time of Note Date/Time of Note DATE: 04/08/17 TIME: 14:31 Assessment/Plan Assessment/Plan Additional Assessment/Plan Sinus Bradycardia Mitral Regurgitation HTN Diabetes dyslipidemia Hyponatremia Bradycardia resolved Stopped Toprol Continue Benazepril Continue Insulin Continue Lipitor Continue GI and DVT Prophylaxis Consultation Date/Type/Reason Admit Date/Time Apr 05, 2017 at 05:22 Initial Consult Date Type of Consultation: nephrology Referring Provider: JUAN C PUGH Exam/Review of Systems Vital Signs Vitals Vital Signs Date Time Temp Pulse Resp B/P Pulse Ox O2 Delivery O2 Flow Rate FiO2 04/08/17 13:39 65 04/08/17 11:24 97.1 134/60 98 04/08/17 08:08 18 04/05/17 06:06 Room Air Intake and Output 04/07/17 04/07/17 04/08/17 15:00 23:00 07:00 Intake Total 1000 ml 300 ml Balance 1000 ml 300 ml Exam Constitutional: alert Head: atraumatic, normocephalic Neck: non-tender, supple Respiratory: clear to auscultation Cardiovascular: regular rate and rhythm Gastrointestinal: nl liver, spleen, non-tender, soft Extremities: normal pulses Results Result Diagram: 04/07/17 0523 04/08/17 0518 Results 24 hrs Laboratory Tests Test 04/07/17 17:27 04/07/17 20:15 04/08/17 05:18 04/08/17 07:59 Bedside Glucose 99 112 154 Sodium Level 134 L Potassium Level 4.1 Chloride Level 92 L Carbon Dioxide Level 28 Anion Gap 18 H Blood Urea Nitrogen 15 Creatinine 0.63 Glucose Level 88 Calcium Level 9.5 Test 04/08/17 12:14 Bedside Glucose 117 Medications Medications Current Medications Ondansetron HCl (Zofran Inj) 4 mg Q6H PRN IV NAUSEA AND/OR VOMITING Last administered on 04/06/17 17:59; Admin Dose 4 MG; Start 04/05/17 at 07:00 Atorvastatin Calcium (Lipitor) 20 mg QHS PO Last administered on 04/07/17 20:17 ; Admin Dose 20 MG; Start 04/05/17 at 21:00 Meclizine HCl (Antivert) 12.5 mg Q6H PRN PO DIZZINESS; Start 04/05/17 at 08:00 Memantine (Namenda) 10 mg BID PO Last administered on 04/08/17 08:27; Admin Dose 10 MG; Start 04/05/17 at 09:00 Hydralazine HCl (Apresoline) 10 mg Q4H PRN IV sbp > 160; Start 04/05/17 at 08:00 Diagnostic Test (Pha) (Accu-Chek) 1 ea 02 XX ; Start 04/06/17 at 02:00 Diagnostic Test (Pha) (Accu-Chek) 1 ea 02 XX ; Start 04/06/17 at 02:00 Miscellaneous Information 1 ea NOTE XX ; Start 04/05/17 at 08:00 Glucose (Glutose) 15 gm Q15M PRN PO DECREASED GLUCOSE; Start 04/05/17 at 08:00 Glucose (Glutose) 22.5 gm Q15M PRN PO DECREASED GLUCOSE; Start 04/05/17 at 08:00 Dextrose (D50w Syringe) 25 ml Q15M PRN IV DECREASED GLUCOSE; Start 04/05/17 at 08:00 Dextrose (D50w Syringe) 50 ml Q15M PRN IV DECREASED GLUCOSE; Start 04/05/17 at 08:00 Glucagon (Glucagen) 1 mg Q15M PRN IM DECREASED GLUCOSE; Start 04/05/17 at 08:00 Glucose (Glutose) 15 gm Q15M PRN BUCCAL DECREASED GLUCOSE; Start 04/05/17 at 08: 00 Insulin Glargine (Lantus) 11 unit DAILY@08 SC Last administered on 04/08/17 08: 44; Admin Dose 11 UNIT; Start 04/06/17 at 08:00 Aspirin (Aspirin) 81 mg DAILY PO Last administered on 04/08/17 08:27; Admin Dose 81 MG; Start 04/06/17 at 09:00 Nitroglycerin (Nitroglycerin (Sl Tab) 0.4 Mg) 1 tab Q5M PRN SL ANGINA; Start at 11:30 Heparin Sodium (Porcine) (Heparin (5000 Units/0.5 ml)) 5,000 unit BID SC Last administered on 04/08/17 08:45; Admin Dose 5,000 UNIT; Start 04/06/17 at 11:00 Benazepril HCl (Lotensin) 40 mg AM PO Last administered on 04/08/17 08:27; Admin Dose 40 MG; Start 04/08/17 at 09:00 Morphine Sulfate (morphine) 2 mg Q4H PRN IV Pain; Start 04/07/17 at 12:00 SEGUNDO CEBALLOS M.D. Apr 08, 2017 14:32
[2017-04-08] MEDS: hydrALAzine 20 MG INJ IV PRN (19:51)
[2017-04-08] MEDS: ATORVASTATIN 20 MG TAB PO SCH (20:23)
[2017-04-09] VITALS (15 sets, daily range): BP systolic 99–197; BP diastolic 59–80; PULSE 61–102; RESP 16–20
[2017-04-09] MEDS: ACCU-CHEK XX SCH ×2 (02:00)
--- NOTE | 2017-04-09 07:47 | CONS ---
DATE OF ADMISSION: 04/05/2017 DATE OF CONSULTATION: 04/05/2017 REASON FOR CONSULTATION: Hypertensive urgency, emergency as well as mitral regurgitation, severe by report. REQUESTING PHYSICIAN: Dr. Oleary from the Hospitalist Service. HISTORY OF PRESENT ILLNESS: Ms. Brothers is an 86-year-old female with a history of hypertension, diabetes mellitus, prior episodes of hyponatremia, who presented with complaints of dizziness and headache to the emergency department here at [facility]. Upon arrival, temperature 97.7 degrees, blood pressure 187/74, pulse 60, respirations 24, saturating 98 percent. The patient's labs: White count 9.9, hemoglobin 12.8, platelet count 248,000. Sodium 123, potassium 3.6, creatinine 0.82. TSH 2.1. The patient had a chest x-ray revealing no acute cardiopulmonary abnormalities. The patient's electrocardiogram revealed sinus bradycardia, rate of 59, normal axis, normal intervals, nonspecific ST-T abnormalities diffusely. The patient is subsequently admitted to the floor and since admitted to the floor, has been placed on oral antihypertensives with Toprol and with improvement in systolic blood pressure. In addition, continued on aspirin and benazepril. PAST MEDICAL HISTORY: As above in HPI. MEDICATION: Currently in the hospital 1. Aspirin 81 mg daily. 2. Lantus. 3. Lipitor 20 mg nightly. 4. Benazepril 40 mg nightly. 5. Hydrochlorothiazide 25 mg daily. 6. Toprol-XL 100 mg daily. 7. Namenda 10 mg b.i.d. 8. Antivert p.r.n. 9. Hydralazine p.r.n. IV push. 10. Zofran p.r.n. 11. Morphine p.r.n. ALLERGIES: NO KNOWN DRUG ALLERGIES. SOCIAL HISTORY: No tobacco, EtOH, or illicit drug use. FAMILY HISTORY: No history of sudden cardiac or early CAD. REVIEW OF SYSTEMS: As above in HPI. CONSTITUTIONAL: No fevers or chills. PULMONARY: Shortness of breath. CARDIOVASCULAR: No current complaints of chest pain. GASTROINTESTINAL: No vomiting. GENITOURINARY: No hematuria. MUSCULOSKELETAL: Degenerative joint disease. PSYCHIATRIC: No documented psych history. NEUROLOGIC: Lethargic. PHYSICAL EXAMINATION: VITAL SIGNS: Temperature 97.7 degrees, blood pressure 130/70 pulse 57, respirations 19, saturating 98 percent. GENERAL: The patient is sleeping, easily arousable. NECK: JVP approximately 8-9 cm of water. LUNGS: Fairly clear throughout. HEART: Bradycardic, regular rhythm. Normal S1, S2. One out of 6 systolic murmur. Nondisplaced PMI. ABDOMEN: Positive bowel sounds. Soft. EXTREMITIES: No edema. One-plus pulses. Bilateral LABORATORY: As above HPI, most recently from today - sodium 129, potassium 3.3, creatinine 0.7, BUN 23. Troponin negative times one. IMAGING STUDIES: As above in HPI. No further imaging studies are reviewed at this time. ECG as above in HPI. No further electrocardiograms reviewed at this time. IMPRESSION: 1. Dizziness, rule out cardiac arrhythmia. 2. Bradycardia, possible cause of dizziness. Continue to assess. 3. History of mitral regurgitation, severe. 4. Abnormal electrocardiogram. Assess for acute coronary syndrome. 5. Hyponatremia, slowly improving on oral antihypertensives. 6. Prerenal azotemia. 7. Diabetes mellitus. 8. Hypertension with hypertensive urgency emergency. RECOMMENDATIONS: 1. At this time, would maintain the patient on telemetry monitoring to follow rhythm and rates closely and assess if more significant arrhythmia maybe associated with the patient's dizziness. 2. We will continue the patient's Toprol-XL at decreased dose to allow patient to tolerate. 3. Continue the patient's benazepril but will increase dose in order to improve overall systolic blood pressure control. 4. Continue the patient's aspirin as prophylaxis for cardiac events_. 5. Continue the patient's statin therapy and adjust according to a fasting lipid panel check. 6. Check orthostatics in terms of orthostasis not contributing to the patient's dizziness. 7. Consider carotid ultrasound to rule out any carotid stenosis that maybe associated with the patient's dizziness and will check a 2D echo to asses ejection fraction, wall motion and major abnormalities like the patient's mitral regurgitation that she is noted to have severely. Thank you for allowing me to take part in the care of this patient. I will continue to follow closely with you. Further recommendations made progress through her inpatient hospital course. Dictated By: Serafin Cárdenas /fnt/clp /Document#: [id number] CC: Roberth Oleary MD;*EndCC* MTDD
[2017-04-09] MEDS: INSULIN ASPART [NOVOLOG] 3 ML PEN SC SCH ×4 (07:55→20:59)
[2017-04-09] MEDS: BENAZEPRIL 40 MG TAB PO SCH (08:49)
[2017-04-09] MEDS: ASPIRIN 81 MG TAB PO SCH (08:49)
[2017-04-09] MEDS: MEMANTINE 10 MG TAB PO SCH ×2 (08:49→20:50)
[2017-04-09] MEDS: metFORMIN 500 MG TAB PO SCH ×2 (08:49→17:35)
[2017-04-09] MEDS: HEPARIN 5,000 UNIT/0.5 ML VIAL SC SCH ×2 (08:55→20:55)
[2017-04-09] MEDS: INSULIN GLARGINE [LANtus] 3 ML PEN SC SCH (08:55)
--- NOTE | 2017-04-09 09:11 | PN ---
DATE: 04/09/2017 SUBJECTIVE DATA: Patient is stable. No events overnight. No fevers, chills, nausea, vomiting. OBJECTIVE DATA: VITAL SIGNS: Blood pressure is 140/67, respirations 16, pulse 64, temperature 97.6. HEENT: Head is normocephalic. NECK: Supple. HEART: Regular rate. LUNGS: Diminished breath sounds at the base. ABDOMEN: Soft, nontender to palpation. No rebound or guarding. EXTREMITIES: Negative for clubbing, cyanosis, or edema. DERMATOLOGIC: Clean. No rashes. MUSCULOSKELETAL: No joint effusions. NEUROLOGIC: No change in exam. MEDICATIONS: The patient's medications were reviewed. LABORATORY AND DIAGNOSTIC DATA: Laboratory data from 04/08 was reviewed. ASSESSMENT AND PLAN: 1. Hyponatremia. Etiology secondary to hydrochlorothiazide effect, following the patient. The patient's sodium levels have improved. At this point, will continue to monitor. Would recommend to discontinue hydrochlorothiazide. Will continue to monitor serum sodium levels. Continue to encourage p.o. intake. 2. Nausea and vomiting secondary to hyponatremia, resolved. 3. Hypertension. Continue current treatment plan. 4. Diabetes. Continue current insulin regimen. 5. Severe mitral regurgitation. The patient evaluated by Cardiology. Continue medical management. Follow up recommendations. 6. Hypokalemia, resolved. Dictated By: Morgan Eduardo DO /elyse/ /Document#: [id number]
--- NOTE | 2017-04-09 09:25 | CONS ---
Date/Time of Note Date/Time of Note DATE: 04/09/17 TIME: 09:24 Assessment/Plan Assessment/Plan Additional Assessment/Plan 1.Bradycardia-to high 50's with stable BP - no CP now, no indication for pacer 2.Mitral regurgitation-severe by outside echo more moderate to severe currently here. NO signs of CHF. No sob - con't to Rx medically. 3.HTN - modest Rx now - michelle rx with renal team 4.Dizziness-? etiology, HR only to high 50's with stable BP - better 5.abnl ecg-NL EF/Negative troop x 3 6.Hyponatremia - ? secondary to meds, Dr. Eduardo follows Consultation Date/Type/Reason Admit Date/Time Apr 05, 2017 at 05:22 Initial Consult Date Type of Consultation: nephrology Referring Provider: JUAN C PUGH 24 HR Interval Summary Free Text/Dictation NO acute events - no pauses on tele ROS: No fever, no chills, no nausea, no vomiting, no diarrhea/constipation No recent weight changes No chest pain, no PND, no orthopnea No dizziness, blurred vision No thirst, no heat or cold intolerance (per nurse) Exam/Review of Systems Vital Signs Vitals Vital Signs Date Time Temp Pulse Resp B/P Pulse Ox O2 Delivery O2 Flow Rate FiO2 04/09/17 08:11 61 04/09/17 07:30 97.7 16 148/69 95 04/09/17 00:50 Room Air Intake and Output 04/08/17 04/08/17 04/09/17 15:00 23:00 07:00 Intake Total 550 ml Balance 550 ml Exam General: WN/WD/NAD, AOx comfortable HEENT: Unicetric/atraumatic/EOMI (does not follow commands) NECK: JVD elevated, no thyromegaly Lymph: no lymphadenopathy HEART: regular with no S3, II/ systolic murmur at apex LUNGS: Coarse sounds ABD: soft, NT, ND, +BS : Intact Neuro: non focal SKIN: chronic changes EXT: trace edema Results Result Diagram: 04/07/17 0523 04/08/17 0518 Results 24 hrs Laboratory Tests Test 04/08/17 12:14 04/08/17 18:22 04/08/17 19:59 04/09/17 08:45 Bedside Glucose 117 91 106 140 Medications Medications Current Medications Ondansetron HCl (Zofran Inj) 4 mg Q6H PRN IV NAUSEA AND/OR VOMITING Last administered on 04/06/17 17:59; Admin Dose 4 MG; Start 04/05/17 at 07:00 Atorvastatin Calcium (Lipitor) 20 mg QHS PO Last administered on 04/08/17 20:23 ; Admin Dose 20 MG; Start 04/05/17 at 21:00 Meclizine HCl (Antivert) 12.5 mg Q6H PRN PO DIZZINESS; Start 04/05/17 at 08:00 Memantine (Namenda) 10 mg BID PO Last administered on 04/09/17 08:49; Admin Dose 10 MG; Start 04/05/17 at 09:00 Hydralazine HCl (Apresoline) 10 mg Q4H PRN IV sbp > 160 Last administered on 19:51; Admin Dose 10 MG; Start 04/05/17 at 08:00 Diagnostic Test (Pha) (Accu-Chek) 1 ea 02 XX ; Start 04/06/17 at 02:00 Diagnostic Test (Pha) (Accu-Chek) 1 ea 02 XX ; Start 04/06/17 at 02:00 Miscellaneous Information 1 ea NOTE XX ; Start 04/05/17 at 08:00 Glucose (Glutose) 15 gm Q15M PRN PO DECREASED GLUCOSE; Start 04/05/17 at 08:00 Glucose (Glutose) 22.5 gm Q15M PRN PO DECREASED GLUCOSE; Start 04/05/17 at 08:00 Dextrose (D50w Syringe) 25 ml Q15M PRN IV DECREASED GLUCOSE; Start 04/05/17 at 08:00 Dextrose (D50w Syringe) 50 ml Q15M PRN IV DECREASED GLUCOSE; Start 04/05/17 at 08:00 Glucagon (Glucagen) 1 mg Q15M PRN IM DECREASED GLUCOSE; Start 04/05/17 at 08:00 Glucose (Glutose) 15 gm Q15M PRN BUCCAL DECREASED GLUCOSE; Start 04/05/17 at 08: 00 Insulin Glargine (Lantus) 11 unit DAILY@08 SC Last administered on 04/09/17 08: 55; Admin Dose 11 UNIT; Start 04/06/17 at 08:00 Aspirin (Aspirin) 81 mg DAILY PO Last administered on 04/09/17 08:49; Admin Dose 81 MG; Start 04/06/17 at 09:00 Nitroglycerin (Nitroglycerin (Sl Tab) 0.4 Mg) 1 tab Q5M PRN SL ANGINA; Start at 11:30 Heparin Sodium (Porcine) (Heparin (5000 Units/0.5 ml)) 5,000 unit BID SC Last administered on 04/09/17 08:55; Admin Dose 5,000 UNIT; Start 04/06/17 at 11:00 Benazepril HCl (Lotensin) 40 mg AM PO Last administered on 04/09/17 08:49; Admin Dose 40 MG; Start 04/08/17 at 09:00 Morphine Sulfate (morphine) 2 mg Q4H PRN IV Pain; Start 04/07/17 at 12:00 LUCAS CASTILLO MD Apr 09, 2017 09:25
--- NOTE | 2017-04-09 10:39 | PN ---
Date/Time of Note Date/Time of Note DATE: 04/09/17 TIME: 10:23 Assessment/Plan VTE Prophylaxis VTE Prophylaxis Intervention: heparin Lines/Catheters IV [facility] Saline [facility] Urinary Cath still in place: No Assessment/Plan Chief Complaint/Hosp Course 1. Dizziness, most likely vertigo/vestibular dysfunction. Patient feels improvement with meclizine. -Obtain carotid ultrasound. -Start low-dose Meclizine and reevaluate 2. Mitral regurgitation.Moderate on repeat echo. -Cards on board and recommended medical management with outpatient follow-up. 3. Hyponatremia,etiology likely dehydration vs thiazide induced.Stable -Nephro on board 4.Hypertension. Stable now. - Continue current treatment plan. PARDEEP Bustamante has been on hold- Defer cards on this. 5. DMII. BS well controlled -Continue Accu-Cheks and insulin sliding scale. PLAN:F/u with carotid us and DC planning with outpt cards and neuro f/u \ No indication on stress ulcer prophylaxis DVT proph: Heparin. Case discussed with DR. Curtis Problems: Subjective 24 Hr Interval Summary Free Text/Dictation Patient continued to report dizziness especially when moving around. She also reports some ringing in her ear. no reported chest pain or other constitutional symptoms. Exam/Review of Systems Vital Signs Vitals Vital Signs Date Time Temp Pulse Resp B/P Pulse Ox O2 Delivery O2 Flow Rate FiO2 04/09/17 08:11 61 04/09/17 07:30 97.7 16 148/69 95 04/09/17 00:50 Room Air Intake and Output 04/08/17 04/08/17 04/09/17 15:00 23:00 07:00 Intake Total 550 ml Balance 550 ml Exam General: Elderly female not in any acute distress . HEENT: Normocephalic, Atraumatic, No laceration or hematoma; Eyes: PEERL, Conjunctiva clear, Anicteric sclera Neck: Supple without any lymphadenopathy, nontender, no JVD, no carotid bruits, trachea midline, no thyromegaly Cardiac: regular rhythm and rate, systolic grade III/ murmur left ICS, midclavicular line Pulmonary: Normal respiratory effort. Chest clear to auscultation bilaterally, no adventitious breath sounds GI: Abdomen normal to inspection. Soft, non tender, non- distended, no masses, no rebound tenderness or guarding. Bowel sounds active on all four quadrants Genitourinary: Deferred Extremities: No cyanosis, clubbing, or edema. Pulses [2+] bilaterally. Full ROM on all four extremities. No focal weakness appreciated. Neurologic: Alert to person, place, time, and situation. Affect appropriate, intact sensation. Skin: Clean,dry, and intact. No ecchymosis, no rashes, or lesions Results Result Diagram: 04/07/17 0523 04/08/17 0518 Results 24 hrs Laboratory Tests Test 04/08/17 12:14 04/08/17 18:22 04/08/17 19:59 04/09/17 08:45 Bedside Glucose 117 91 106 140 Medications Medications Current Medications Ondansetron HCl (Zofran Inj) 4 mg Q6H PRN IV NAUSEA AND/OR VOMITING Last administered on 04/06/17 17:59; Admin Dose 4 MG; Start 04/05/17 at 07:00 Atorvastatin Calcium (Lipitor) 20 mg QHS PO Last administered on 04/08/17 20:23 ; Admin Dose 20 MG; Start 04/05/17 at 21:00 Meclizine HCl (Antivert) 12.5 mg Q6H PRN PO DIZZINESS; Start 04/05/17 at 08:00 Memantine (Namenda) 10 mg BID PO Last administered on 04/09/17 08:49; Admin Dose 10 MG; Start 04/05/17 at 09:00 Hydralazine HCl (Apresoline) 10 mg Q4H PRN IV sbp > 160 Last administered on 19:51; Admin Dose 10 MG; Start 04/05/17 at 08:00 Diagnostic Test (Pha) (Accu-Chek) 1 ea 02 XX ; Start 04/06/17 at 02:00 Diagnostic Test (Pha) (Accu-Chek) 1 ea 02 XX ; Start 04/06/17 at 02:00 Miscellaneous Information 1 ea NOTE XX ; Start 04/05/17 at 08:00 Glucose (Glutose) 15 gm Q15M PRN PO DECREASED GLUCOSE; Start 04/05/17 at 08:00 Glucose (Glutose) 22.5 gm Q15M PRN PO DECREASED GLUCOSE; Start 04/05/17 at 08:00 Dextrose (D50w Syringe) 25 ml Q15M PRN IV DECREASED GLUCOSE; Start 04/05/17 at 08:00 Dextrose (D50w Syringe) 50 ml Q15M PRN IV DECREASED GLUCOSE; Start 04/05/17 at 08:00 Glucagon (Glucagen) 1 mg Q15M PRN IM DECREASED GLUCOSE; Start 04/05/17 at 08:00 Glucose (Glutose) 15 gm Q15M PRN BUCCAL DECREASED GLUCOSE; Start 04/05/17 at 08: 00 Insulin Glargine (Lantus) 11 unit DAILY@08 SC Last administered on 04/09/17 08: 55; Admin Dose 11 UNIT; Start 04/06/17 at 08:00 Aspirin (Aspirin) 81 mg DAILY PO Last administered on 04/09/17 08:49; Admin Dose 81 MG; Start 04/06/17 at 09:00 Nitroglycerin (Nitroglycerin (Sl Tab) 0.4 Mg) 1 tab Q5M PRN SL ANGINA; Start at 11:30 Heparin Sodium (Porcine) (Heparin (5000 Units/0.5 ml)) 5,000 unit BID SC Last administered on 04/09/17 08:55; Admin Dose 5,000 UNIT; Start 04/06/17 at 11:00 Benazepril HCl (Lotensin) 40 mg AM PO Last administered on 04/09/17 08:49; Admin Dose 40 MG; Start 04/08/17 at 09:00 Morphine Sulfate (morphine) 2 mg Q4H PRN IV Pain; Start 04/07/17 at 12:00 CECILIO GARRIDO NP Apr 09, 2017 10:39 CECILIO GARRIDO NP Apr 09, 2017 10:39
[2017-04-09] MEDS: hydrALAzine 20 MG INJ IV PRN ×3 (12:42→22:00)
[2017-04-09] MEDS ORDERED: CLONIDINE 0.1 MG/24 HR PATCH TRANSDERM SCH (16:00)
--- NOTE | 2017-04-09 16:11 | RADRPT ---
PROCEDURE: US Carotids. CLINICAL INDICATION: bruit , dizziness TECHNIQUE: Multiple sonographic of the carotid bifurcation region and vertebral arteries were obta ined utilizing ashton scale, duplex and color-flow imaging. The images were reviewed on a PACS worksta tion. COMPARISON: No prior studies are available for comparison. FINDINGS: Evaluation of the right carotid bifurcation region reveals no significant calcific atherosclerotic d isease. Evaluation of the left carotid bifurcation region reveals no significant calcific atherosclerotic di sease. There is antegrade flow within the vertebral arteries bilaterally. RIGHT CAROTID MEASUREMENTS: Common Carotid Fqbnyp37.2 (cm/sec) Internal Carotid Artery - bjqooxxe53.7 (cm/sec) Internal Carotid Artery - mid57.9 (cm/sec) Internal Carotid Artery - weeadl30.1 (cm/sec) Internal Carotid/Common Carotid0.91 LEFT CAROTID MEASUREMENTS: Common Carotid Jaiqub10.3 (cm/sec) Internal Carotid Artery - saxkcpms73.2 (cm/sec) Internal Carotid Artery - mid81.9 (cm/sec) Internal Carotid Artery - .5 (cm/sec) Internal Carotid/Common Carotid1.57 RPTAT: AA IMPRESSION: No evidence for hemodynamically significant stenosis in the bilateral internal carotid arteries - va lidated velocity measurements with angiographic measurements, velocity criteria are extrapolated fro m diameter data as defined by the Society of Radiologists in Ultrasound Consensus Conference Radiolo gy 2003; 229;340-346. This study does indirectly reference the measurement of the distal ICA diamet er as the denominator for stenosis measurement. Normal antegrade flow in the vertebral arteries bilaterally. .Prateek Nicholas MD, Date Time Electronically viewed and signed by .Prateek Nicholas MD, MD on 04/09/2017 16:11 .S/
[2017-04-09] MEDS: ATORVASTATIN 20 MG TAB PO SCH (20:50)
[2017-04-09] MEDS: MECLIZINE 12.5 MG TAB PO SCH (20:50)
[2017-04-09] MEDS: METOPROLOL 50 MG TAB PO SCH (20:51)
[2017-04-09] MEDS ORDERED: traZODone 50 MG TAB PO ONE (21:30)
[2017-04-10] VITALS (12 sets, daily range): BP systolic 117–138; BP diastolic 53–62; PULSE 64–71; RESP 16–20
[2017-04-10] MEDS: ACCU-CHEK XX SCH (02:00)
[2017-04-10 07:39] LABS: CALCIUM 9.9 mg/dl (8.4-10.2); CREATININE 0.72 mg/dl (0.44-1.00); MAGNESIUM 1.3 mg/dl (1.7-2.5); PHOSPHORUS 3.1 mg/dl (2.5-4.9); POTASSIUM 4.9 mmol/L (3.5-5.1)
[2017-04-10] MEDS: INSULIN ASPART [NOVOLOG] 3 ML PEN SC SCH ×4 (07:53→20:27)
[2017-04-10] MEDS: MECLIZINE 12.5 MG TAB PO SCH ×2 (08:19→20:25)
[2017-04-10] MEDS: MEMANTINE 10 MG TAB PO SCH ×2 (08:19→20:25)
[2017-04-10] MEDS: metFORMIN 500 MG TAB PO SCH ×2 (08:19→18:48)
[2017-04-10] MEDS: BENAZEPRIL 40 MG TAB PO SCH (08:19)
[2017-04-10] MEDS: ASPIRIN 81 MG TAB PO SCH (08:19)
[2017-04-10] MEDS: METOPROLOL 50 MG TAB PO SCH ×2 (08:20→20:25)
[2017-04-10] MEDS: INSULIN GLARGINE [LANtus] 3 ML PEN SC SCH (08:21)
[2017-04-10] MEDS: HEPARIN 5,000 UNIT/0.5 ML VIAL SC SCH (08:22)
[2017-04-10] MEDS ORDERED: MAGNESIUM SULFATE 2 GM/50 ML 50 ML IVPB ONE (09:00)
--- NOTE | 2017-04-10 09:05 | PN ---
DATE: 04/10/2017 SUBJECTIVE DATA: The patient is stable. No acute events overnight. No fevers, chills, nausea, vomiting. The patient admits to drinking copious amounts of water. OBJECTIVE DATA: VITAL SIGNS: Blood pressure 130/67, respirations 16, pulse 75, temperature 98.3. HEENT: Normocephalic. NECK: Supple. HEART: Regular rate. Positive murmur. LUNGS: Diminished breath sounds at the base. ABDOMEN: Soft, nontender to palpation. No rebound or guarding. EXTREMITIES: Negative clubbing or cyanosis, no edema. DERMATOLOGIC: Clean. No rashes. MUSCULOSKELETAL: No joint effusion. NEUROLOGIC: No change in exam. MEDICATIONS: Reviewed. LABORATORY AND DIAGNOSTIC DATA: Shows sodium 127, potassium 4.9 chloride 86, creatinine 0.72. ASSESSMENT AND PLAN: 1. Hyponatremia. Etiology initially felt to be secondary to hydrochlorothiazide effect. The patient's sodium levels initially improved. However, they have declined in the last 48 hours. This may be due to a low osmolar intake in conjunction with polydipsia. Plan is to re-evaluate the patient by checking urine sodium, urine osmolarity, will check serum osmolality. We will check uric acid level. We will place the patient on free water restriction. Will continue to monitor serum sodium levels. The patient is encouraged to increase her osmolar intake in her diet. 2. Hypomagnesemia. Replete magnesium sulfate. 3. Nausea and vomiting, improved. 4. Hypertension. Continue current blood pressure regimen. 5. Diabetes. Continue current insulin regimen. 6. Severe mitral regurgitation. Patient evaluated by Cardiology. Follow up recommendations. 7. Hypokalemia, improved. Continue to monitor. Dictated By: Morgan Eduardo DO /elyse/kevin /Document#: [id number]
--- NOTE | 2017-04-10 09:14 | CONS ---
Date/Time of Note Date/Time of Note DATE: 04/10/17 TIME: 09:13 Assessment/Plan Assessment/Plan Additional Assessment/Plan 1.Bradycardia-to high 50's with stable BP - no CP now, no indication for pacer - stable 2.Mitral regurgitation-severe by outside echo more moderate to severe currently here. NO signs of CHF. No sob - con't to Rx medically. 3.HTN - modest Rx now - michelle rx with renal team - BETTER NOw, will monitor clinically 4.Dizziness-? etiology, HR only to high 50's with stable BP - better 5.abnl ecg-NL EF/Negative troop x 3 6.Hyponatremia - ? secondary to meds, Dr. Eduardo follows - stable Consultation Date/Type/Reason Admit Date/Time Apr 05, 2017 at 05:22 Type of Consultation: nephrology Referring Provider: JUAN C PUGH 24 HR Interval Summary Free Text/Dictation NO acute events - =BP in good range now ROS: No fever, no chills, no nausea, no vomiting, no diarrhea/constipation No recent weight changes No chest pain, no PND, no orthopnea No dizziness, blurred vision No thirst, no heat or cold intolerance Exam/Review of Systems Vital Signs Vitals Vital Signs Date Time Temp Pulse Resp B/P Pulse Ox O2 Delivery O2 Flow Rate FiO2 04/10/17 08:14 71 04/10/17 07:41 98.3 16 138/60 93 04/09/17 00:50 Room Air Exam General: WN/WD/NAD, AOx comfortable HEENT: Unicetric/atraumatic/EOMI (not follow commands) NECK: JVD elevated, no thyromegaly Lymph: no lymphadenopathy HEART: regular with no S3, II/ systolic murmur at apex LUNGS: Coarse sounds ABD: soft, NT, ND, +BS : Intact Neuro: non focal SKIN: chronic changes EXT: trace edema Results Result Diagram: 04/07/17 0523 04/10/17 0639 Results 24 hrs Laboratory Tests Test 04/09/17 12:40 04/09/17 14:41 04/09/17 18:06 04/09/17 20:58 Bedside Glucose 110 105 131 160 Test 04/10/17 02:03 04/10/17 06:39 04/10/17 07:52 Bedside Glucose 134 107 Sodium Level 127 L Potassium Level 4.9 Chloride Level 86 L Carbon Dioxide Level 28 Anion Gap 18 H Blood Urea Nitrogen 15 Creatinine 0.72 Glucose Level 112 Calcium Level 9.9 Phosphorus Level 3.1 Magnesium Level 1.3 L Medications Medications Current Medications Ondansetron HCl (Zofran Inj) 4 mg Q6H PRN IV NAUSEA AND/OR VOMITING Last administered on 04/06/17 17:59; Admin Dose 4 MG; Start 04/05/17 at 07:00 Atorvastatin Calcium (Lipitor) 20 mg QHS PO Last administered on 04/09/17 20:50 ; Admin Dose 20 MG; Start 04/05/17 at 21:00 Memantine (Namenda) 10 mg BID PO Last administered on 04/10/17 08:19; Admin Dose 10 MG; Start 04/05/17 at 09:00 Hydralazine HCl (Apresoline) 10 mg Q4H PRN IV sbp > 160 Last administered on 22:00; Admin Dose 10 MG; Start 04/05/17 at 08:00 Diagnostic Test (Pha) (Accu-Chek) 1 ea 02 XX ; Start 04/06/17 at 02:00 Miscellaneous Information 1 ea NOTE XX ; Start 04/05/17 at 08:00 Glucose (Glutose) 15 gm Q15M PRN PO DECREASED GLUCOSE; Start 04/05/17 at 08:00 Glucose (Glutose) 22.5 gm Q15M PRN PO DECREASED GLUCOSE; Start 04/05/17 at 08:00 Dextrose (D50w Syringe) 25 ml Q15M PRN IV DECREASED GLUCOSE; Start 04/05/17 at 08:00 Dextrose (D50w Syringe) 50 ml Q15M PRN IV DECREASED GLUCOSE; Start 04/05/17 at 08:00 Glucagon (Glucagen) 1 mg Q15M PRN IM DECREASED GLUCOSE; Start 04/05/17 at 08:00 Glucose (Glutose) 15 gm Q15M PRN BUCCAL DECREASED GLUCOSE; Start 04/05/17 at 08: 00 Insulin Glargine (Lantus) 11 unit DAILY@08 SC Last administered on 04/10/17 08: 21; Admin Dose 11 UNIT; Start 04/06/17 at 08:00 Aspirin (Aspirin) 81 mg DAILY PO Last administered on 04/10/17 08:19; Admin Dose 81 MG; Start 04/06/17 at 09:00 Nitroglycerin (Nitroglycerin (Sl Tab) 0.4 Mg) 1 tab Q5M PRN SL ANGINA; Start at 11:30 Heparin Sodium (Porcine) (Heparin (5000 Units/0.5 ml)) 5,000 unit BID SC Last administered on 04/10/17 08:22; Admin Dose 5,000 UNIT; Start 04/06/17 at 11:00 Benazepril HCl (Lotensin) 40 mg AM PO Last administered on 04/10/17 08:19; Admin Dose 40 MG; Start 04/08/17 at 09:00 Morphine Sulfate (morphine) 2 mg Q4H PRN IV Pain; Start 04/07/17 at 12:00 Meclizine HCl (Antivert) 12.5 mg BID PO Last administered on 04/10/17 08:19; Admin Dose 12.5 MG; Start 04/09/17 at 21:00 Clonidine HCl (Catapres-Tts 1 Patch) 1 patch Q7D TRANSDERM Last administered on 04/09/17 14:50; Admin Dose 1 PATCH; Start 04/09/17 at 16:00 Metoprolol Tartrate 50 mg 50 mg BID PO Last administered on 04/10/17 08:20; Admin Dose 50 MG; Start 04/09/17 at 21:00 Magnesium Sulfate (Magnesium Sulfate 2 Gm/50 ml) 50 ml @ 25 mls/hr ONCE ONCE IVPB ; Start 04/10/17 at 09:00; Stop 04/10/17 at 10:59 LUCAS CASTILLO MD Apr 10, 2017 09:14
[2017-04-10 13:54] LABS: ADD UMIC YES; UR ASCORBIC ACID NEGATIVE (NEGATIVE); UR BACTERIA FEW /HPF (NONE SEEN); UR BILIRUBIN (Dip) NEGATIVE (NEGATIVE); UR BLOOD (Dip) 2+ mg/dL (NEGATIVE); UR CLARITY CLEAR (CLEAR); UR COLOR STRAW (YELLOW); UR GLUCOSE (Dip) NEGATIVE (NEGATIVE); UR KETONES (Dip) NEGATIVE (NEGATIVE); UR LEUKOCYTE ESTERASE (Dip) NEGATIVE Leu/ul (NEGATIVE); UR NITRITE (Dip) NEGATIVE (NEGATIVE); UR RBC 2 /HPF (0-5); UR SPECIFIC GRAVITY (Dip) 1.006 (1.003-1.030); UR TOTAL PROTEIN (Dip) NEGATIVE (NEGATIVE); UR UROBILINOGEN (Dip) NEGATIVE (NEGATIVE)
--- NOTE | 2017-04-10 14:18 | PN ---
Date/Time of Note Date/Time of Note DATE: 04/10/17 TIME: 14:17 Assessment/Plan VTE Prophylaxis VTE Prophylaxis Intervention: ambulation Lines/Catheters IV Catheter Type (from [facility]): [facility] Urinary Cath still in place: No Assessment/Plan Chief Complaint/Hosp Course 1. Dizziness, most likely vertigo/vestibular dysfunction. Resolving -Continue meclizine -We will also obtain neurology eval. 2. Mitral regurgitation.Moderate on repeat echo. -Cards on board and recommended medical management with outpatient follow-up. 3. Hyponatremia,etiology likely dehydration vs thiazide induced.Stable -Nephro on board 4.Hypertension. Stable now. - Continue current treatment plan. AlisamarePARDEEP has been on hold- Defer cards on this. 5. DMII. BS well controlled -Continue Accu-Cheks and insulin sliding scale. PLAN:F/u with neurology recommendation. If patient continues to feel improvement and further studies are negative, likely discharge planning tomorrow. No indication on DVT/stress ulcer prophylaxis Case discussed with DR. Shankar Problems: Subjective 24 Hr Interval Summary Free Text/Dictation Today patient feels improvement in dizziness after starting the medicine. No nausea or vomiting reported. Exam/Review of Systems Vital Signs Vitals Vital Signs Date Time Temp Pulse Resp B/P Pulse Ox O2 Delivery O2 Flow Rate FiO2 04/10/17 12:16 97.9 64 16 133/61 97 04/09/17 00:50 Room Air Exam General: Elderly female not in any acute distress . HEENT: Normocephalic, Atraumatic, No laceration or hematoma; Eyes: PEERL, Conjunctiva clear, Anicteric sclera Neck: Supple without any lymphadenopathy, nontender, no JVD, no carotid bruits, trachea midline, no thyromegaly Cardiac: regular rhythm and rate, systolic grade III/ murmur left ICS, midclavicular line Pulmonary: Normal respiratory effort. Chest clear to auscultation bilaterally, no adventitious breath sounds GI: Abdomen normal to inspection. Soft, non tender, non- distended, no masses, no rebound tenderness or guarding. Bowel sounds active on all four quadrants Genitourinary: Deferred Extremities: No cyanosis, clubbing, or edema. Pulses [2+] bilaterally. Full ROM on all four extremities. No focal weakness appreciated. Neurologic: Alert to person, place, time, and situation. Affect appropriate, intact sensation. Skin: Clean,dry, and intact. No ecchymosis, no rashes, or lesions Results Result Diagram: 04/07/17 0523 04/10/17 0639 Results 24 hrs Laboratory Tests Test 04/09/17 14:41 04/09/17 18:06 04/09/17 20:58 04/10/17 02:03 Bedside Glucose 105 131 160 134 Test 04/10/17 06:39 04/10/17 07:52 04/10/17 09:34 04/10/17 10:49 Sodium Level 127 L Potassium Level 4.9 Chloride Level 86 L Carbon Dioxide Level 28 Anion Gap 18 H Blood Urea Nitrogen 15 Creatinine 0.72 Glucose Level 112 Calcium Level 9.9 Phosphorus Level 3.1 Magnesium Level 1.3 L Bedside Glucose 107 Osmolality 262 L Urine Color STRAW Urine Clarity CLEAR Urine pH 8.0 Urine Specific [place] 1.006 Urine Ketones NEGATIVE Urine Nitrite NEGATIVE Urine Bilirubin NEGATIVE Urine Urobilinogen NEGATIVE Urine Leukocyte Esterase NEGATIVE Urine Microscopic RBC 2 Urine Microscopic WBC 2 Urine Bacteria FEW A Urine Hemoglobin 2+ H Urine Random Creatinine 29.42 Urine Random Sodium 16 L Urine Glucose NEGATIVE Urine Total Protein 13.0 H Test 04/10/17 11:28 Bedside Glucose 100 Medications Medications Current Medications Ondansetron HCl (Zofran Inj) 4 mg Q6H PRN IV NAUSEA AND/OR VOMITING Last administered on 04/06/17 17:59; Admin Dose 4 MG; Start 04/05/17 at 07:00 Atorvastatin Calcium (Lipitor) 20 mg QHS PO Last administered on 04/09/17 20:50 ; Admin Dose 20 MG; Start 04/05/17 at 21:00 Memantine (Namenda) 10 mg BID PO Last administered on 04/10/17 08:19; Admin Dose 10 MG; Start 04/05/17 at 09:00 Hydralazine HCl (Apresoline) 10 mg Q4H PRN IV sbp > 160 Last administered on 22:00; Admin Dose 10 MG; Start 04/05/17 at 08:00 Diagnostic Test (Pha) (Accu-Chek) 1 ea 02 XX ; Start 04/06/17 at 02:00 Miscellaneous Information 1 ea NOTE XX ; Start 04/05/17 at 08:00 Glucose (Glutose) 15 gm Q15M PRN PO DECREASED GLUCOSE; Start 04/05/17 at 08:00 Glucose (Glutose) 22.5 gm Q15M PRN PO DECREASED GLUCOSE; Start 04/05/17 at 08:00 Dextrose (D50w Syringe) 25 ml Q15M PRN IV DECREASED GLUCOSE; Start 04/05/17 at 08:00 Dextrose (D50w Syringe) 50 ml Q15M PRN IV DECREASED GLUCOSE; Start 04/05/17 at 08:00 Glucagon (Glucagen) 1 mg Q15M PRN IM DECREASED GLUCOSE; Start 04/05/17 at 08:00 Glucose (Glutose) 15 gm Q15M PRN BUCCAL DECREASED GLUCOSE; Start 04/05/17 at 08: 00 Insulin Glargine (Lantus) 11 unit DAILY@08 SC Last administered on 04/10/17 08: 21; Admin Dose 11 UNIT; Start 04/06/17 at 08:00 Aspirin (Aspirin) 81 mg DAILY PO Last administered on 04/10/17 08:19; Admin Dose 81 MG; Start 04/06/17 at 09:00 Nitroglycerin (Nitroglycerin (Sl Tab) 0.4 Mg) 1 tab Q5M PRN SL ANGINA; Start at 11:30 Heparin Sodium (Porcine) (Heparin (5000 Units/0.5 ml)) 5,000 unit BID SC Last administered on 04/10/17 08:22; Admin Dose 5,000 UNIT; Start 04/06/17 at 11:00 Benazepril HCl (Lotensin) 40 mg AM PO Last administered on 04/10/17 08:19; Admin Dose 40 MG; Start 04/08/17 at 09:00 Morphine Sulfate (morphine) 2 mg Q4H PRN IV Pain; Start 04/07/17 at 12:00 Meclizine HCl (Antivert) 12.5 mg BID PO Last administered on 04/10/17 08:19; Admin Dose 12.5 MG; Start 04/09/17 at 21:00 Clonidine HCl (Catapres-Tts 1 Patch) 1 patch Q7D TRANSDERM Last administered on 04/09/17 14:50; Admin Dose 1 PATCH; Start 04/09/17 at 16:00 Metoprolol Tartrate (Lopressor) 50 mg BID PO Last administered on 04/10/17t 08: 20; Admin Dose 50 MG; Start 04/09/17 at 21:00 CECILIO GARRIDO NP Apr 10, 2017 14:18 CECILIO GARRIDO NP Apr 10, 2017 14:18
--- NOTE | 2017-04-10 18:46 | RADRPT ---
PROCEDURE: MR cerebral angiogram without intravenous contrast CLINICAL INDICATION: Dizziness. COMPARISON: MR from 04/06/2017. TECHNIQUE: MR angiogram of the head using 3D [id number]. Multiplanar reconstructions were obtai rocky. Images acquired on a 3.0 Ursula magnet. FINDINGS: Carotid arteries: Mild irregularity along the cavernous segments of both internal carotid arteries w ith less than 25% narrowing. Anterior cerebral arteries: No flow-limiting stenosis. Middle cerebral arteries: Short segment multi focal high-grade stenosis within the distal left M1 mi ddle cerebral artery (series 3, images 107 - 18 seen) Posterior cerebral arteries: No flow-limiting stenosis. Anterior communicating artery: No flow-limiting stenosis. Posterior communicating arteries: type on the left. The right is not identified. Basilar artery: No flow-limiting stenosis. Vertebral arteries: No flow-limiting stenosis. Vertebral artery dominance: Codominant. Aneurysm: No aneurysm identified. 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 Mild ex vacuo dilation of the left lateral ventricle. IMPRESSION: 1. 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 2. Mild irregularity and atherosclerotic plaque along the cavernous segments of both internal caroti d arteries. RPTAT: PP Physician Jameson Date Time Electronically viewed and signed by Physician Jameson on 04/10/2017 18:46 LG/
[2017-04-10] MEDS: ATORVASTATIN 20 MG TAB PO SCH (20:25)
[2017-04-11] VITALS (7 sets, daily range): BP systolic 113–131; BP diastolic 55–60; PULSE 58–63; RESP 18–19
[2017-04-11] MEDS: ACCU-CHEK XX SCH (02:00)
[2017-04-11] MEDS: INSULIN ASPART [NOVOLOG] 3 ML PEN SC SCH ×2 (07:55→11:50)
[2017-04-11] MEDS ORDERED: SOD CHLORIDE 0.9% 1,000 ML IV SCH (08:00)
[2017-04-11 08:02] LABS: BASOPHIL # 0.1 10^3/ul (0.0-0.1); BASOPHILS % 0.7 % (0.0-2.0); EOSINOPHILS # 0.1 10^3/ul (0.0-0.5); EOSINOPHILS % 1.1 % (0.0-7.0); HEMATOCRIT 33.4 % (37.0-47.0); HEMOGLOBIN 11.3 g/dl (12.0-16.0); LYMPHOCYTES # 3.2 10^3/ul (0.8-2.9); LYMPHOCYTES % 44.9 % (15.0-51.0); MEAN CORPUSCULAR HEMOGLOBIN 28.1 pg (29.0-33.0); MEAN CORPUSCULAR HGB CONC 33.8 g/dl (32.0-37.0); MEAN CORPUSCULAR VOLUME 83.1 fl (82.0-101.0); MEAN PLATELET VOLUME 9.9 fl (7.4-10.4); MONOCYTE # 0.6 10^3/ul (0.3-0.9); MONOCYTES % 8.9 % (0.0-11.0); NEUTROPHIL # 3.2 10^3/ul (1.6-7.5); NEUTROPHILS % 44.1 % (39.0-77.0); PLATELET COUNT 239 10^3/UL (140-415); RED BLOOD COUNT 4.02 10^6/ul (4.20-5.40); RED CELL DISTRIBUTION WIDTH 13.1 % (11.5-14.5); WHITE BLOOD COUNT 7.2 10^3/ul (4.8-10.8)
[2017-04-11] MEDS: INSULIN GLARGINE [LANtus] 3 ML PEN SC SCH (08:18)
[2017-04-11] MEDS: ASPIRIN 81 MG TAB PO SCH (08:20)
[2017-04-11] MEDS: MECLIZINE 12.5 MG TAB PO SCH (08:20)
[2017-04-11] MEDS: MEMANTINE 10 MG TAB PO SCH (08:20)
[2017-04-11] MEDS: metFORMIN 500 MG TAB PO SCH (08:20)
[2017-04-11] MEDS: METOPROLOL 50 MG TAB PO SCH (08:21)
[2017-04-11] MEDS: BENAZEPRIL 40 MG TAB PO SCH (08:21)
[2017-04-11 08:24] LABS: CALCIUM 9.4 mg/dl (8.4-10.2); CREATININE 0.77 mg/dl (0.44-1.00); MAGNESIUM 1.6 mg/dl (1.7-2.5); PHOSPHORUS 3.4 mg/dl (2.5-4.9); POTASSIUM 4.7 mmol/L (3.5-5.1)
--- NOTE | 2017-04-11 08:29 | PN ---
DATE: 04/11/2017 SUBJECTIVE DATA: The patient is stable. No acute events overnight. No fevers, chills, nausea, vomiting. No shortness of breath. No fevers, chills, nausea, vomiting. Patient has had poor p.o. intake per family. OBJECTIVE DATA: VITAL SIGNS: Blood pressure 116/55, respirations 18, pulse 60, temperature 98.1. HEENT: Head is normocephalic. NECK: Supple. HEART: Regular rate. LUNGS: Show diminished breath sounds at the base. ABDOMEN: Soft, nontender to palpation. No guarding. EXTREMITIES: Negative for clubbing, cyanosis. No edema. DERMATOLOGIC: Clean. No rashes. MUSCULOSKELETAL: No joint effusion. NEUROLOGIC: No change in exam. MEDICATIONS: Reviewed. LABORATORY AND DIAGNOSTIC DATA: From yesterday show a FeNO of less than 1 percent. Urine sodium of 16. Urine osmolality of 202. Laboratory data from this morning is currently pending. ASSESSMENT AND PLAN: 1. Hyponatremia. Etiology was initially secondary to hydrochlorothiazide effect in conjunction with a low osmolar intake. The patient's hyponatremia has worsen last 24 hours. This is likely due to low solute state, low solute intake. The patient's urine sodium levels are low and the patient has a low urine osmolarity suggesting the patient is capable of diluting the urine. However, without proper solute intake, the patient is unable to have an adequate . Plan at this point was to start the patient on normal saline, gentle hydration. We will start the patient at 50 cc an hour and monitor serial sodium levels closely. 2. Hypomagnesemia. Continue to monitor and replete. 3. Nausea and vomiting, improved. 4. Hypertension. Continue current blood pressure regimen. 5. Diabetes. Continue Accu-Cheks and insulin sliding scale. 6. Severe mitral regurgitation. Continue to monitor. Follow up with Cardiology. 7. Hypokalemia, improved. Dictated By: Morgan Eduardo DO /elyse/amaris /Document#: [id number]
--- NOTE | 2017-04-11 10:53 | PDOCDIS ---
Discharge Instructions CONDITION Patient Condition: Stable HOME CARE INSTRUCTIONS: Diet Instructions: Low Fat /Cholesterol FOLLOW UP/APPOINTMENTS Follow-up Plan 1.Follow up with primary care physician in 1 week If you don't have one please let someone know, we can give you resources that may help you pick one. You may also call your insurance company to assign one to you. Review your medication list with your nurse before leaving and if you need new prescriptions please let your nurse know. I may have made changes to your home medications or given you new prescriptions, please let your primary doctor know as well. Stay compliant with your medications and report any side effects to your PCP or pharmacist. Return to the ER if you have any concerns and cannot reach your doctors or call your insurance company, they usually have a nurse that can help you. 2. Call 911 or go to the nearest emergency room if experiencing loss of consciousness, dizziness, chest pain, shortness of breath, vomiting/abdominal pain, speech difficulties, motor weakness or any unusual symptoms. 3.Follow-up with outpatient gaming associate in 1 week 4.Follow-up with outpatient neurologist (patient already has appointment) CECILIO GARRIDO NP Apr 11, 2017 10:53
[2017-04-11] MEDS ORDERED: CLOP75TA28 PO (10:56)
[2017-04-11] MEDS ORDERED: METO-429 PO (10:56)
[2017-04-11] MEDS ORDERED: MECL12.574 PO (10:56)
[2017-04-11] MEDS ORDERED: ATOR20TA65 PO (10:56)
[2017-04-11] MEDS ORDERED: CLOPIDOGREL 75 MG TAB PO SCH (11:00)
--- NOTE | 2017-04-11 11:21 | CONS ---
Date/Time of Note Date/Time of Note DATE: 04/11/17 TIME: 11:16 Assessment/Plan Assessment/Plan Chief Complaint/Hosp Course 86 yo female with history of chronic vertigo admitted with hyponatremia. Further Brain imaging suggestive of Left MCA stenosis. Recommendations: maintain SBP <140/90 continue aspirin, in light of MCA stenosis would add Plavix 75 mg and increase Lipitor to 40 mg qhs if LFT's are stable intracranial atherosclerosis is usually treated with dual antiplatelet and high intensity statin would recommend close follow up with PCP to check LFT's continue meclizine, PT gait/balance training for chronic vertigo outpatient follow up Problems: Consultation Date/Type/Reason Admit Date/Time Apr 05, 2017 at 05:22 Date of Consultation: Apr 11, 2017 Type of Consultation: Neurology Reason for Consultation eval for vertigo Referring Provider: CECILIO GARRIDO NP Hx of Present Illness 86 year old female with history of hypertension, DM, hyponatremia Na: 127 presenting with complaints of dizziness. Per daughters at bedside she describes a loud noise in her head beginning in the left side of her head and c/o headaches. She has previously experienced dizziness , chronic vertigo currently on meclizine. 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 MRA M1 distal left MCA stenosis. Constitutional: no complaints Eyes: no complaints ENT: no complaints Respiratory: no complaints Cardiovascular: no complaints Gastrointestinal: no complaints Genitourinary: no complaints Musculoskeletal: no complaints Neurologic: headache (Mild headache) Psychological: no complaints Past Surgical History Past Surgical Hx: no surgical history Social History Smoking Status: Never smoker Exam/Review of Systems Vital Signs Vitals Vital Signs Date Time Temp Pulse Resp B/P Pulse Ox O2 Delivery O2 Flow Rate FiO2 04/11/17 08:23 60 04/11/17 07:24 98.1 18 116/55 97 04/09/17 00:50 Room Air Intake and Output 04/10/17 04/10/17 04/11/17 15:00 23:00 07:00 Intake Total 550 ml 800 ml 800 ml Balance 550 ml 800 ml 800 ml Exam Constitutional: alert, oriented, well developed Psych: no complaints Head: atraumatic, normocephalic Neurological: GRAIN ORIGINATION SPECIALIST II-XII intact, DTR's symmetric, nl mental status, nl speech, nl strength Results Result Diagram: 04/11/17 0741 04/11/17 0741 Results 24 hrs Laboratory Tests Test 04/10/17 11:28 04/10/17 18:49 04/10/17 20:27 04/11/17 07:41 Bedside Glucose 100 99 89 White Blood Count 7.2 Red Blood Count 4.02 L Hemoglobin 11.3 L Hematocrit 33.4 L Mean Corpuscular Volume 83.1 Mean Corpuscular Hemoglobin 28.1 L Mean Corpuscular Hemoglobin Concent 33.8 Red Cell Distribution Width 13.1 Platelet Count 239 Mean Platelet Volume 9.9 Neutrophils % 44.1 Lymphocytes % 44.9 Monocytes % 8.9 Eosinophils % 1.1 Basophils % 0.7 Nucleated Red Blood Cells % 0.0 Neutrophils # 3.2 Lymphocytes # 3.2 H Monocytes # 0.6 Eosinophils # 0.1 Basophils # 0.1 Nucleated Red Blood Cells # 0.0 Sodium Level 127 L Potassium Level 4.7 Chloride Level 89 L Carbon Dioxide Level 26 Anion Gap 17 H Blood Urea Nitrogen 18 Creatinine 0.77 Glucose Level 80 Calcium Level 9.4 Phosphorus Level 3.4 Magnesium Level 1.6 L Test 04/11/17 08:14 Bedside Glucose 92 Medications Medications Current Medications Ondansetron HCl (Zofran Inj) 4 mg Q6H PRN IV NAUSEA AND/OR VOMITING Last administered on 04/06/17 17:59; Admin Dose 4 MG; Start 04/05/17 at 07:00 Memantine (Namenda) 10 mg BID PO Last administered on 04/11/17 08:20; Admin Dose 10 MG; Start 04/05/17 at 09:00 Hydralazine HCl (Apresoline) 10 mg Q4H PRN IV sbp > 160 Last administered on 22:00; Admin Dose 10 MG; Start 04/05/17 at 08:00 Diagnostic Test (Pha) (Accu-Chek) 1 ea 02 XX ; Start 04/06/17 at 02:00 Miscellaneous Information 1 ea NOTE XX ; Start 04/05/17 at 08:00 Glucose (Glutose) 15 gm Q15M PRN PO DECREASED GLUCOSE; Start 04/05/17 at 08:00 Glucose (Glutose) 22.5 gm Q15M PRN PO DECREASED GLUCOSE; Start 04/05/17 at 08:00 Dextrose (D50w Syringe) 25 ml Q15M PRN IV DECREASED GLUCOSE; Start 04/05/17 at 08:00 Dextrose (D50w Syringe) 50 ml Q15M PRN IV DECREASED GLUCOSE; Start 04/05/17 at 08:00 Glucagon (Glucagen) 1 mg Q15M PRN IM DECREASED GLUCOSE; Start 04/05/17 at 08:00 Glucose (Glutose) 15 gm Q15M PRN BUCCAL DECREASED GLUCOSE; Start 04/05/17 at 08: 00 Insulin Glargine (Lantus) 11 unit DAILY@08 SC Last administered on 04/11/17 08: 18; Admin Dose 11 UNIT; Start 04/06/17 at 08:00 Aspirin (Aspirin) 81 mg DAILY PO Last administered on 04/11/17 08:20; Admin Dose 81 MG; Start 04/06/17 at 09:00 Nitroglycerin (Nitroglycerin (Sl Tab) 0.4 Mg) 1 tab Q5M PRN SL ANGINA; Start at 11:30 Benazepril HCl (Lotensin) 40 mg AM PO Last administered on 04/11/17 08:21; Admin Dose 40 MG; Start 04/08/17 at 09:00 Morphine Sulfate (morphine) 2 mg Q4H PRN IV Pain; Start 04/07/17 at 12:00 Meclizine HCl (Antivert) 12.5 mg BID PO Last administered on 04/11/17 08:20; Admin Dose 12.5 MG; Start 04/09/17 at 21:00 Clonidine HCl (Catapres-Tts 1 Patch) 1 patch Q7D TRANSDERM Last administered on 04/09/17 14:50; Admin Dose 1 PATCH; Start 04/09/17 at 16:00 Metoprolol Tartrate 50 mg 50 mg BID PO Last administered on 04/11/17 08:21; Admin Dose 50 MG; Start 04/09/17 at 21:00 Sodium Chloride (NS) 1,000 ml @ 50 mls/hr Q20H IV Last administered on 08:21; Admin Dose 50 MLS/HR; Start 04/11/17 at 08:00 Atorvastatin Calcium (Lipitor) 80 mg DAILY@21 PO ; Start 04/11/17 at 21:00 Clopidogrel Bisulfate (plaVIX) 75 mg DAILY PO ; Start 04/11/17 at 11:00 ISHAAN SOMMERS MD Apr 11, 2017 11:21
[2017-04-11] MEDS ORDERED: ATOR40TA68 PO (11:40)
--- NOTE | 2017-04-11 11:43 | CONS ---
Date/Time of Note Date/Time of Note DATE: 04/11/17 TIME: 11:40 Assessment/Plan Assessment/Plan Chief Complaint/Hosp Course IMP: 1.Bradycardia-to high 50's with stable BP 2.Mitral regurgitation-severe by outside echo more moderate to severe currently here. NO signs of CHF. No sob 3.HTN 4.Dizziness-? etiology, HR only to high 50's with stable BP 5.abnl ecg-NL EF/Negative troop x 3 6.Hyponatremia-ongoing 7. L MCA stenosis ni MRI/MRA Recc: -Tele -serial ecg's -Continue benazepril -Continue asa/statin and now plavix -Follow volume status closely -Continue meclizine -Further eval and work up of mitral regurgitation as outpatient Problems: Consultation Date/Type/Reason Admit Date/Time Apr 05, 2017 at 05:22 Initial Consult Date 04/05/2017 Type of Consultation: cardiology Reason for Consultation roque Referring Provider: CECILIO GARRIDO NP Exam/Review of Systems Vital Signs Vitals Vital Signs Date Time Temp Pulse Resp B/P Pulse Ox O2 Delivery O2 Flow Rate FiO2 04/11/17 08:23 60 04/11/17 07:24 98.1 18 116/55 97 04/09/17 00:50 Room Air Intake and Output 04/10/17 04/10/17 04/11/17 15:00 23:00 07:00 Intake Total 550 ml 800 ml 800 ml Balance 550 ml 800 ml 800 ml Exam Review of Systems: CONSTITUTIONAL: No fevers, chills. PULMONARY: No sob CARDIOVASCULAR: No chest pain/palpitations GASTROINTESTINAL: No nausea/vomiting. GENITOURINARY: No hematuria/dysuria. MUSCULOSKELETAL: No myagias/arthalgias. PSYCHIATRIC: The patient denies depression. NEUROLOGIC: dizziness Constitutional: alert Psych: no complaints ENMT: mucosa pink and moist Neck: jvd (9 cm water), supple Respiratory: diminished breath sounds (at bases/B) Cardiovascular: regular rate and rhythm Gastrointestinal: non-tender, soft Musculoskeletal: muscle weakness (mild generalized) Extremities: edema (none) Neurological: other (No focal deficits) Results Result Diagram: 04/11/17 0741 04/11/17 0741 Results 24 hrs Laboratory Tests Test 04/10/17 18:49 04/10/17 20:27 04/11/17 07:41 04/11/17 08:14 Bedside Glucose 99 89 92 White Blood Count 7.2 Red Blood Count 4.02 L Hemoglobin 11.3 L Hematocrit 33.4 L Mean Corpuscular Volume 83.1 Mean Corpuscular Hemoglobin 28.1 L Mean Corpuscular Hemoglobin Concent 33.8 Red Cell Distribution Width 13.1 Platelet Count 239 Mean Platelet Volume 9.9 Neutrophils % 44.1 Lymphocytes % 44.9 Monocytes % 8.9 Eosinophils % 1.1 Basophils % 0.7 Nucleated Red Blood Cells % 0.0 Neutrophils # 3.2 Lymphocytes # 3.2 H Monocytes # 0.6 Eosinophils # 0.1 Basophils # 0.1 Nucleated Red Blood Cells # 0.0 Sodium Level 127 L Potassium Level 4.7 Chloride Level 89 L Carbon Dioxide Level 26 Anion Gap 17 H Blood Urea Nitrogen 18 Creatinine 0.77 Glucose Level 80 Calcium Level 9.4 Phosphorus Level 3.4 Magnesium Level 1.6 L Medications Medications Current Medications Ondansetron HCl (Zofran Inj) 4 mg Q6H PRN IV NAUSEA AND/OR VOMITING Last administered on 04/06/17 17:59; Admin Dose 4 MG; Start 04/05/17 at 07:00 Memantine (Namenda) 10 mg BID PO Last administered on 04/11/17 08:20; Admin Dose 10 MG; Start 04/05/17 at 09:00 Hydralazine HCl (Apresoline) 10 mg Q4H PRN IV sbp > 160 Last administered on 22:00; Admin Dose 10 MG; Start 04/05/17 at 08:00 Diagnostic Test (Pha) (Accu-Chek) 1 ea 02 XX ; Start 04/06/17 at 02:00 Miscellaneous Information 1 ea NOTE XX ; Start 04/05/17 at 08:00 Glucose (Glutose) 15 gm Q15M PRN PO DECREASED GLUCOSE; Start 04/05/17 at 08:00 Glucose (Glutose) 22.5 gm Q15M PRN PO DECREASED GLUCOSE; Start 04/05/17 at 08:00 Dextrose (D50w Syringe) 25 ml Q15M PRN IV DECREASED GLUCOSE; Start 04/05/17 at 08:00 Dextrose (D50w Syringe) 50 ml Q15M PRN IV DECREASED GLUCOSE; Start 04/05/17 at 08:00 Glucagon (Glucagen) 1 mg Q15M PRN IM DECREASED GLUCOSE; Start 04/05/17 at 08:00 Glucose (Glutose) 15 gm Q15M PRN BUCCAL DECREASED GLUCOSE; Start 04/05/17 at 08: 00 Insulin Glargine (Lantus) 11 unit DAILY@08 SC Last administered on 04/11/17 08: 18; Admin Dose 11 UNIT; Start 04/06/17 at 08:00 Aspirin (Aspirin) 81 mg DAILY PO Last administered on 04/11/17 08:20; Admin Dose 81 MG; Start 04/06/17 at 09:00 Nitroglycerin (Nitroglycerin (Sl Tab) 0.4 Mg) 1 tab Q5M PRN SL ANGINA; Start at 11:30 Benazepril HCl (Lotensin) 40 mg AM PO Last administered on 04/11/17 08:21; Admin Dose 40 MG; Start 04/08/17 at 09:00 Morphine Sulfate (morphine) 2 mg Q4H PRN IV Pain; Start 04/07/17 at 12:00 Meclizine HCl (Antivert) 12.5 mg BID PO Last administered on 04/11/17 08:20; Admin Dose 12.5 MG; Start 04/09/17 at 21:00 Clonidine HCl (Catapres-Tts 1 Patch) 1 patch Q7D TRANSDERM Last administered on 04/09/17 14:50; Admin Dose 1 PATCH; Start 04/09/17 at 16:00 Metoprolol Tartrate 50 mg 50 mg BID PO Last administered on 04/11/17 08:21; Admin Dose 50 MG; Start 04/09/17 at 21:00 Sodium Chloride (NS) 1,000 ml @ 50 mls/hr Q20H IV Last administered on 08:21; Admin Dose 50 MLS/HR; Start 04/11/17 at 08:00 Clopidogrel Bisulfate (plaVIX) 75 mg DAILY PO ; Start 04/11/17 at 11:00 Atorvastatin Calcium (Lipitor) 40 mg DAILY@21 PO ; Start 04/11/17 at 21:00 MELISSA CEJA Apr 11, 2017 11:43
[2017-04-11 13:58] LABS: MICROALBUMIN 0.8 mg/dL
--- NOTE | 2017-04-11 15:21 | DS ---
Date/Time of Note Date/Time of Note DATE: 04/11/17 TIME: 15:16 Discharge Summary Admission/Discharge Info Admit Date/Time Apr 05, 2017 at 05:22 Discharge Date/Time Apr 11, 2017 at 14:30 Discharge Diagnosis 1. Dizziness, most likely vertigo/vestibular dysfunction. Resolved 2. Mitral regurgitation. 3. Hyponatremia,etiology likely dehydration vs thiazide induced.Stable 4.Hypertension. 5. DMII. 6. MCA stenosis, left. Patient Condition: Stable Consults ,cardiology ,Neuro ,Nephro Procedures MR cerebral angiogram without IV contrast. 04/10/2017. IMPRESSION: 1. Short segment severe stenosis involving the distal M1 segment of the left middle cerebral artery. 2. Mild irregularity and atherosclerotic plaque along the cavernous segments of both internal carotid arteries. Echocardiogram. 04/05/2017. Conclusions Normal left ventricular systolic function. Normal left ventricular cavity size. Mild concentric left ventricular hypertrophy. Ejection fraction is visually estimated at 60 %. Tissue Doppler/Mitral Doppler indices are consistent with impaired relaxation (Stage I diastolic dysfunction). There is mild enlargement of left atrium. Mitral valve leaflets appear mildly thickened. Mild mitral annular calcification. Moderate mitral valve regurgitation. No hemodynamically significant aortic stenosis by doppler. Aortic cusps appear mildly calcified. Mild aortic valve regurgitation. Normal appearance of the tricuspid valve. Estimated peak PA systolic pressure 29 mmHg. There is mild tricuspid regurgitation. Hx of Present Illness Hospital Course This is a 86-year-old female with a medical history of hypertension, type 2 diabetes, vertigo, mitral regurgitation, who presented to the emergency room ongoing dizziness accompanied with hearing loud noise in her head and ringing in ears. Patient did not have any loss of consciousness or focal neuro deficit. Patient was admitted for evaluation. Patient had her echocardiogram repeated with findings of moderate mitral regurgitation and was evaluated by cardiology. Outpatient cardiology workup was recommended. She was continued on her home medication for underlying comorbid conditions. Imaging studies including MRI and carotid duplex is negative for any acute stroke. Patient continued to have dizziness especially with moving around. She was given meclizine and her symptoms improved with meclizine. Likely cause of patient's symptoms secondary to vertigo. She also was evaluated by nephrology for underlying hyponatremia. Thiazide diuretics were discontinued as this could be the cause of her underlying hyponatremia per renal standpoint. Patient did not have any neuro symptoms. Sodium level was monitored closely and remained at baseline. Patient was also evaluated by neurology. MRA brain revealed left MCA stenosis. Recommendation was Plavix 75 mg together with Lipitor 40 mg at outpatient follow-up. Patient did not have any further symptoms. She feels back to her baseline. Labs and vital signs remains within acceptable range. At this time, patient is medically stable for discharge with close outpatient monitoring with neurology as well as cardiology. Disposition: Patient will be discharged home today. She was instructed to follow-up with her primary care, cardiology and neurologist. Patient was given prescription for newly added medications. Patient and family verbalized discharge instructions. Condition at time of discharge is stable. Approximately 60 minutes was spent in coordinating the discharge on this patient. Case discussed with Dr. Shankar. Home Meds Active Scripts Atorvastatin* (Atorvastatin*) 40 Mg Tablet, 40 MG PO DAILY@21, #30 TAB Prov:GARRIDO,CECILIO V. [employer]CH[employer] 04/11/17 Meclizine Hcl* (Antivert*) 12.5 Mg Tab, 12.5 MG PO BID, #60 TAB Prov:GARRIDO,CECILIO [employer]CH[employer] 04/11/17 Metoprolol Tartrate* (Lopressor*) 50 Mg Tab, 50 MG PO BID, #60 TAB Prov:GARRIDO,CECILIO [employer]. [employer]CH[employer] 04/11/17 Clopidogrel Bisulfate (Clopidogrel) 75 Mg Tablet, 75 MG PO DAILY, #30 TAB Prov:GARRIDO,CECILIO [employer] 04/11/17 Reported Medications Memantine* (Namenda* XR) 28 Mg Cap.spr.24, 28 MG PO DAILY, #30 TAB 03/31/17 Metformin* (Glucophage*) 1,000 Mg Tablet, 1000 MG PO BID, #60 TAB 02/11/16 Benazepril Hcl* (Benazepril Hcl*) 40 Mg Tablet, 40 MG PO QHS 07/07/10 Discontinued Reported Medications Hydrochlorothiazide* (Hydrochlorothiazide*) 25 Mg Tab, 25 MG PO DAILY, #30 TAB 04/05/17 Atorvastatin Calcium* (Atorvastatin Calcium*) 20 Mg Tablet, 20 MG PO QHS, #30 TAB 03/31/17 Metoprolol Succinate* (Toprol XL*) 25 Mg Tab.sr.24h, 100 MG PO AFTER DINNER, # 30 TAB 02/11/16 Ibuprofen* (Ibuprofen*) 600 Mg Tablet, 600 MG PO DAILY 07/07/10 Discontinued Scripts Meclizine Hcl* (Antivert*) 12.5 Mg Tab, 12.5 MG PO Q6H Y for DIZZINESS, #20 TAB Prov:MECHE ROA DO 03/31/17 Follow-up Plan Diet Instructions: Low Fat /Cholesterol FOLLOW UP/APPOINTMENTS Follow-up Plan 1.Follow up with primary care physician in 1 week If you don't have one please let someone know, we can give you resources that may help you pick one. You may also call your insurance company to assign one to you. Review your medication list with your nurse before leaving and if you need new prescriptions please let your nurse know. I may have made changes to your home medications or given you new prescriptions, please let your primary doctor know as well. Stay compliant with your medications and report any side effects to your PCP or pharmacist. Return to the ER if you have any concerns and cannot reach your doctors or call your insurance company, they usually have a nurse that can help you. 2. Call 911 or go to the nearest emergency room if experiencing loss of consciousness, dizziness, chest pain, shortness of breath, vomiting/abdominal pain, speech difficulties, motor weakness or any unusual symptoms. 3.Follow-up with outpatient pharmacy technologist in 1 week 4.Follow-up with outpatient neurologist (patient already has appointment) Primary Care Provider Luci Jaimes Pending Labs Laboratory Tests Test 04/10/17 18:49 04/10/17 20:27 04/11/17 07:41 04/11/17 08:14 Bedside Glucose 99mg/dL (70-220) 89mg/dL (70-220) 92mg/dL (70-220) White Blood Count 7.210^3/ul (4.8-10.8) Red Blood Count 4.0210^6/ul (4.20-5.40) Hemoglobin 11.3g/dl (12.0-16.0) Hematocrit 33.4% (37.0-47.0) Mean Corpuscular Volume 83.1fl (82.0-101.0) Mean Corpuscular Hemoglobin 28.1pg (29.0-33.0) Mean Corpuscular Hemoglobin Concent 33.8g/dl (32.0-37.0) Red Cell Distribution Width 13.1% (11.5-14.5) Platelet Count 35324^3/UL (140-415) Mean Platelet Volume 9.9fl (7.4-10.4) Neutrophils % 44.1% (39.0-77.0) Lymphocytes % 44.9% (15.0-51.0) Monocytes % 8.9% (0.0-11.0) Eosinophils % 1.1% (0.0-7.0) Basophils % 0.7% (0.0-2.0) Nucleated Red Blood Cells % 0.0/100WBC (0.0-0.0) Neutrophils # 3.210^3/ul (1.6-7.5) Lymphocytes # 3.210^3/ul (0.8-2.9) Monocytes # 0.610^3/ul (0.3-0.9) Eosinophils # 0.110^3/ul (0.0-0.5) Basophils # 0.110^3/ul (0.0-0.1) Nucleated Red Blood Cells # 0.010^3/ul (0.0-0.0) Sodium Level 127mmol/L (135-144) Potassium Level 4.7mmol/L (3.5-5.1) Chloride Level 89mmol/L (97-110) Carbon Dioxide Level 26mmol/L (21-31) Anion Gap 17 (8-16) Blood Urea Nitrogen 18mg/dl (7-20) Creatinine 0.77mg/dl (0.44-1.00) Glucose Level 80mg/dl (70-220) Calcium Level 9.4mg/dl (8.4-10.2) Phosphorus Level 3.4mg/dl (2.5-4.9) Magnesium Level 1.6mg/dl (1.7-2.5) Test 04/11/17 12:06 Bedside Glucose 84mg/dL (70-220) CECILIO GARRIDO NP Apr 11, 2017 15:21
[2017-04-11] MEDS ORDERED: ATORVASTATIN 40 MG TAB PO SCH (21:00)
[2017-04-11] MEDS ORDERED: ATORVASTATIN 80 MG TAB PO SCH (21:00)
== END 2017-04-11 14:30 | disposition home or self-care (01) | DRG 641 ==
LOC: E/R 22:14 → TEL 04-05 05:22
PROVIDERS: ADMIT Internal Medicine; ATTEND Internal Medicine
DX: E87.1 Hypo-osmolality and hyponatremia (principal); E86.0 Dehydration; E11.9 Type 2 diabetes mellitus without complications; R00.1 Bradycardia, unspecified; I10 Essential (primary) hypertension; R51 Headache; R11.0 Nausea; H92.09 Otalgia, unspecified ear; I16.0 Hypertensive urgency; R42 Dizziness and giddiness; I34.0 Nonrheumatic mitral (valve) insufficiency; I25.10 Atherosclerotic heart disease of native coronary artery without angina pectoris; K21.9 Gastro-esophageal reflux disease without esophagitis; E78.5 Hyperlipidemia, unspecified
CPT/HCPCS: 36415; 70544; 70551; 71010; 80048; 81001; 81003; 82043; 82533; 82550; 82553; 82962; 83036; 83735; 83880; 83930; 83935; 84100; 84155; 84300; 84443; 84484; 84560; 85025; 93005; 93306; 93880; 96374; J0360; J0780; J1644; J1815; J2405; J3475; J7030; J7040; J7042

== ENCOUNTER 2019-02-17 16:45 | Emergency (ER) | payer MEDICARE, BC ==
[~2019-02-17] VITALS: Ht 162.6 cm; Wt 63.3 kg
[~2019-02-17 16:45] MED LIST changes: -ATOR20TA38 PO; +ATOR40TA68 PO; -BENA40TA41 PO; +BENA40TA56 PO; +CLOP75TA28 PO; -IBUP-1542 PO; +METO-429 PO; -METO25TA7 PO
[2019-02-17 17:15] VITALS: Ht 162.6 cm; Wt 63.3 kg
--- NOTE | 2019-02-17 19:21 | ERD ---
ER Documentation Chief Complaint Chief Complaint Fall 2 days ago bruising on knee, legs & arms HPI 88-year-old female, previously healthy, presents emergency department, complaining of pain after sustaining a ground-level fall landing on her knees 2 days ago. No reports of head trauma, no loss of consciousness. During the last 2 days the patient has been able to ambulate without difficulty except for pain. ROS All systems reviewed and are negative except as per history of present illness. Medications Home Meds Active Scripts Acetaminophen* (Tylenol*) 325 Mg Tablet, 2 TAB PO Q4 PRN for PAIN AND OR ELEVATED TEMP, #20 TAB Prov:EDILBERTO EDWARDS MD 02/17/19 Atorvastatin* (Atorvastatin*) 40 Mg Tablet, 40 MG PO DAILY@21, #30 TAB Prov:GARRIDOCECILIO V. [employer] 04/11/17 Meclizine Hcl* (Antivert*) 12.5 Mg Tab, 12.5 MG PO BID, #60 TAB Prov:GARRIDOADILENEA V. [employer] 04/11/17 Metoprolol Tartrate* (Lopressor*) 50 Mg Tab, 50 MG PO BID, #60 TAB Prov:GARRIDOCECILIO V. [employer] 04/11/17 Clopidogrel Bisulfate (Clopidogrel) 75 Mg Tablet, 75 MG PO DAILY, #30 TAB Prov:GARRIDOCECILIO V. [employer] 04/11/17 Reported Medications Memantine* (Namenda* XR) 28 Mg Cap.spr.24, 28 MG PO DAILY, #30 TAB 03/31/17 Metformin* (Glucophage*) 1,000 Mg Tablet, 1000 MG PO BID, #60 TAB 02/11/16 Benazepril Hcl* (Benazepril Hcl*) 40 Mg Tablet, 40 MG PO QHS 07/07/10 Allergies Allergies: Coded Allergies: No Known Allergy (Unverified , 03/31/17) PMhx/Soc History of Surgery: No Anesthesia Reaction: No Hx Neurological Disorder: Yes (Dementia ) Hx Respiratory Disorders: No Hx Cardiac Disorders: Yes (htn, mitral regurgitation ) Hx Psychiatric Problems: Yes (anxiety, dementia ) Hx Miscellaneous Medical Probl: No Hx Alcohol Use: No Hx Substance Use: No Hx Tobacco Use: No Physical Exam Vitals Vital Signs Date Temp Pulse Resp B/P (MAP) Pulse Ox O2 O2 Flow FiO2 Time Delivery Rate 02/17/19 98.2 79 18 189/79 97 22:05 (115) 02/17/19 98.3 98 18 200/85 97 17:15 (123) Physical Exam Const: No acute distress Head: Atraumatic Eyes: Normal Conjunctiva ENT: Normal External Ears, Nose and Mouth. Neck: Full range of motion. No meningismus. Resp: Clear to auscultation bilaterally Cardio: Regular rate and rhythm, no murmurs Abd: Soft, non tender, non distended. Normal bowel sounds Skin: No petechiae or rashes Back: No midline or flank tenderness Ext: No cyanosis, or edema Neur: Awake and alert Psych: Normal Mood and Affect Results 24 hrs Current Medications Medications Dose Sig/Adam Start Time Status Last (Trade) Ordered Route PRN Stop Time Admin Dose Reason Admin Ketorolac 15 mg ONCE STAT 02/17/19 DC 02/17/19 Tromethamine IM 21:14 21:24 (Toradol) 02/17/19 21:15 Patient: KOFFI SHEIKH : 1930 Age: 88 Sex: F MR #: [id number] DOS: 02/17/191917 Ordering MD: EDILBERTO EDWARDS MD Location: [facility] Room/Bed: PROCEDURE: XR knee CLINICAL INDICATION: knee pain. TECHNIQUE: Three portable views of the right knee were obtained. COMPARISON: None. FINDINGS: There is no acute fracture or dislocation. Osseous structures are intact. There are mild to moderate tricompartmental osteoarthritic changes of the knee, most notable at the medial tibio-femoral compartment. There is a small knee joint effusion. Vascular calcifications are seen. IMPRESSION: 1. No acute osseous abnormality. 2. Mild to moderate tricompartmental osteoarthritis, most notable at the medial tibio-femoral compartment. 3. Atherosclerosis. 4. Small knee joint effusion. Patient: KOFFI SHEIKH : 1930 Age: 88 Sex: F MR #: [id number] DOS: 02/17/191917 Ordering MD: EDILBERTO EDWARDS MD Location: [facility] Room/Bed: PROCEDURE: XR Thoracic Spine CLINICAL INDICATION: Back pain. TECHNIQUE: 3 views of the thoracic spine were obtained. COMPARISON: None. FINDINGS: Alignment of the thoracic spine is normal. Vertebral body heights are maintained. There are moderate multilevel degenerative changes of the thoracic spine with intervertebral disc space narrowing and osteophytosis. No fracture or subluxation is identified. Bones are demineralized. IMPRESSION: 1. Moderate multilevel thoracic spondylosis. 2. Osteopenia. Daniels transfer text Procedures/MDM Differential diagnosis include but not limited to: Soft tissue contusion, sprain/strain, herniated disk, muscle spasm, fracture. Neurovascular exam grossly intact. no clinical findings suggestive of fracture, no acute deformity, no edema, no rashes. Physical examination and clinical presentation consistent most likely with mechanical fall, No evidence of cardiac, neurologic, or metabolic cause of fall. Fall risk and home safety assessed and appropriate for outpatient care and work up. During the ED course the patient remained stable, without complaints. Results and clinical impression discussed with patient who agrees with management. The patient is stable to be treated outpatient and will be discharged home with recommendations and close monitoring The patient was instructed to follow up with the primary care provider in the next 48h. If symptoms persist, worsen or new symptoms develop, then patient should return to the ED immediately. Instructions explained and given to patient with acknowledgment and demonstrated understanding. Disclaimer: Inadvertent spelling and grammatical errors are likely due to EHR/dictation software use and do not reflect on the overall quality of patient care. Also, please note that the electronic time recorded on this note does not necessarily reflect the actual time of the patient encounter. Departure Diagnosis: Primary Impression: Fall with no significant injury Condition: Stable Patient Instructions: Fall Prevention Additional Instructions: Muchas ruby por [facility] para lainez servicio. Esperamos que en lainez visita a la roseann de emergencia lainez problema medico haya sido solucionado y que se sienta mucho mejor. Para estar seguros que lainez mejoria sigue en proceso, le pedimos el favor de hacer tavo erik de seguimiento medico con lainez doctor primario en los proximos 2-4 bustillo. Lleve con usted estos documentos y las medicinas recetadas. Si domenico sintomas empeoran, NO SE ESPERE, por favor regrese a roseann de emergencia INMEDIATAMENTE. En yanci que usted no tenga un mdico de atencin primaria: Llame al mdico o clnica comunitaria de referencia que aparece abajo rajwinder las horas de consultorio para hacer tavo erik para que le vean. CLINICAS: [facility] [phone] [facility] [phone] [address] [facility] [phone] [place] [id number] [phone] [place] [phone] [facility] [phone] EDILBERTO LEONE MD Feb 17, 2019 19:21
[2019-02-17] MEDS ORDERED: KETOROLAC 15 MG INJ IM STA (21:14)
[2019-02-17] MEDS ORDERED: ACET325T33 PO (21:47)
[2019-02-17 22:05] VITALS: BP 189/79; PULSE 79; RESP 18
== END 2019-02-17 22:08 | disposition home or self-care (01) ==
LOC: FTE 16:45
DX: S80.01XA Contusion of right knee, initial encounter (principal); I10 Essential (primary) hypertension; S40.022A Contusion of left upper arm, initial encounter; S80.12XA Contusion of left lower leg, initial encounter; W19.XXXA Unspecified fall, initial encounter; Y92.9 Unspecified place or not applicable; Z79.01 Long term (current) use of anticoagulants; Z79.84 Long term (current) use of oral hypoglycemic drugs
CPT/HCPCS: 72072; 73030; 73562; 73630; 96372; 99284; J1885